=== PATIENT | male | born 1955 | race Caucasian/White ===

== ENCOUNTER 2016-02-22 09:51 | Inpatient (IN) | payer OTHER ==
[~2016-02-22] VITALS: Ht 175.3 cm; Wt 102.1 kg
[~2016-02-22 09:51] MED LIST: ATIVAN0.5 MG PO; CLONAZEPAM0.5 M2 PO; CYMBALTA30 M1 PO; GEODON40 MG PO; LAMICTAL200 M1 PO; LAMICTAL25 M1 PO; LEVOTHYROXINE0.15 M1 PO; LITHIUM CARBON150 M1 PO; LITHIUM CARBON150 MG PO; LITHIUM CARBON300 M3 PO; LITHIUM CARBON300 M4 PO; LITHIUM CARBON300 M6 PO; LITHIUM CARBON600 MG PO; MELATONIN3 M4 PO; MELATONIN5 M5 PO; METAMUCIL1 PAC PO; METFORMIN ER500 MG PO; NORTRIPTYLINE H25 M2 PO; NORTRIPTYLINE H50 M1 PO; OLANZAPINE5 MG PO; PRINIVIL5 M1 PO; PROPRANOLOL HCL10 M1 PO; RISPERIDONE4 MG PO; ROBINUL FORTE2 M1 PO; SEROQUEL100 M1 PO; TEGRETOL200 MG PO; VISTARIL50 M1 PO; VITAB121000 PO
--- NOTE | 2016-02-22 09:57 | ED GENERAL ADULT ---
History of Present Illness General Chief Complaint: Dyspnea (COPD, CHF, Other) Stated Complaint: COUGH, CONGESTION, WHEEZING Source: patient Exam Limitations: no limitations Vital Signs & Intake/Output Vital Signs & Intake/Output Vital Signs Date Time Temp Pulse Resp B/P Pulse O2 O2 Flow FiO2 Ox Delivery Rate 02/22 1047 97.7 84 18 127/76 93 Room Air 02/22 0746 97.0 62 18 104/68 94 Room Air 02/21 2223 98.0 57 16 114/69 90 Room Air 02/21 1807 98.5 62 16 108/55 96 Room Air 02/21 1354 98.2 61 16 101/59 92 Room Air ED Intake and Output 02/22 0000 02/21 1200 Intake Total 250 Output Total Balance 250 Intake, Oral 250 Patient 225 lb Weight Allergies Coded Allergies: Penicillins (RASH 11/11/15) Reconcile Medications Clonazepam 0.5 MG TABLET 1 TAB PO PRN ANXIETY (Reported) Duloxetine Hydrochloride (Cymbalta) 30 MG CAPSULE.DR 1 CAP PO DAILY MENTAL HEALTH (Reported) Escitalopram Oxalate 10 MG TABLET 1 TAB PO DAILY MENTAL HEALTH (Reported) Lamotrigine (Lamictal) 200 MG TABLET 1 TAB PO QPM MENTAL HEALTH (Reported) Levothyroxine Sodium 0.15 MG TAB 1 TAB PO DAILY AC THYROID (Reported) Lisinopril (Prinivil) 5 MG TABLET 0.5 TAB PO QAM HIGH BLOOD PRESSURE ( Reported) [place] Carbonate 300 MG CAPSULE 2 TAB PO QPM MENTAL HEALTH (Reported) [place] Carbonate 300 MG CAPSULE 1 CAP PO QAM MENTAL HEALTH (Reported) Metformin Hydrochloride (Metformin ER) [address] 1 TAB PO DAILY DIABETES ( Reported) Nortriptyline HCl 25 MG CAPSULE 5 TAB PO QPM PAIN CONTROL (Reported) Propranolol HCl 10 MG TABLET 1 TAB PO BID TREMORS (Reported) Quetiapine Fumarate (Seroquel) 100 MG TABLET 1 TAB PO QPM MENTAL HEALTH ( Reported) Risperidone 2 MG TABLET 1 TAB PO QPM MENTAL HEALTH (Reported) Risperidone 0.5 MG TABLET 1 TAB PO BID MENTAL HEALTH (Reported) Ziprasidone HCl (Geodon) 40 MG CAPSULE 1 TAB PO BID MENTAL HEALTH (Reported) Triage Nurses Notes Reviewed? yes Onset: Abrupt Duration: day(s): Timing: recent history HPI: 02/22/16 1 PM 60-year-old male presents to the emergency department complaining of depression and suicidal ideation. According to the patient he was up all night unable to sleep. He does admit to a cough and nasal congestion. No other medical complaints. He says that he's been depressed for some time and is having thoughts about hurting himself. The onset of the symptoms were abrupt, the duration of the symptoms has been days, the severity is significant; as his symptoms required to come to the emergency department for care (SAMANTHA GALLO DO) Past History Travel History Traveled to [place] past 21 day No Medical History Any Pertinent Medical History? 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 No (SAMANTHA GALLO DO) Review of Systems Review of Systems Constitutional: Denies: fever. EENTM: Denies: visual changes. Respiratory: Reports: cough. Denies: short of breath. Cardiovascular: Denies: chest pain. GI: Denies: abdominal pain. Genitourinary: Reports: no symptoms. Musculoskeletal: Reports: no symptoms. Skin: Denies: rash. Neurological/Psychological: Reports: depressed. Hematologic/Endocrine: Denies: bleeding. (SAMANTHA GALLO DO) Physical Exam Physical Exam General Appearance: alert, awake, anxious, mild distress Head: atraumatic, normal appearance Eyes: Bilateral: normal appearance, PERRL, EOMI. Ears, Nose, Throat: normal pharynx, normal ENT inspection Neck: normal inspection, supple, full range of motion Respiratory: normal breath sounds, chest non-tender, no respiratory distress Cardiovascular: regular rate/rhythm Peripheral Pulses: 4+ radial (R), 4+ radial (L) Gastrointestinal: non-tender Back: normal range of motion Extremities: normal range of motion Neurologic/Psych: no motor/sensory deficits, awake, alert, oriented x 3 Skin: intact, normal color, warm/dry Core Measures ACS in differential dx? No CVA/TIA Diagnosis: No Severe Sepsis Present: No Septic Shock Present: No (SAMANTHA GALLO DO) Progress Differential Diagnoses I considered the following diagnoses in my evaluation of the patient: [ DEPRESSION,SI, ] Plan of Care: Orders Procedure Date/time Status Regular Diet 02/22 B Active Continuous Observation Monitor 02/22 1500 Active Admit to inpatient psych 02/22 1320 Active Continuous Observation Monitor 02/22 1100 Active Continuous Observation Monitor 02/22 0700 Active ETHANOL 02/21 2014 Complete COMPREHENSIVE METABOLIC PANEL 02/21 2014 Complete CBC WITHOUT DIFFERENTIAL 02/21 2014 Complete Current Medications Sig/Josesito Start time Last Medication Dose Stop Time Status Admin Clonazepam 0.5 MG ONCE ONE 02/22 1330 AC (KlonoPIN) 02/22 1331 Laboratory Tests 02/22/162049: Anion Gap 8, Estimated GFR > 60, BUN/Creatinine Ratio 11.0, Glucose 116 H, Calcium 9.9, Total Bilirubin 0.5, AST 21, ALT 21, Alkaline Phosphatase 59, Total Protein 6.8, Albumin 4.0, Globulin 2.8, Albumin/Globulin Ratio 1.4, CBC w Diff NO MAN DIFF REQ, RBC 4.69 L, MCV 92.3, MCH 31.5 H, RDW 13.0, MPV 7.8, Gran % 68.5, Lymphocytes % 17.0 L, Monocytes % 9.4 H, Eosinophils % 4.7, Basophils % 0.4, Absolute Granulocytes 5.2, Absolute Lymphocytes 1.3, Absolute Monocytes 0.7 H, Absolute Eosinophils 0.4, Absolute Basophils 0, PUBS MCHC 34.1, Serum Alcohol < 10.0 Initial ED EKG: none (SAMANTHA GALLO DO) Hand-Off Endorsed To: DEIRDRE EASLEY MD Endorsed Time: 0700 Pending: consult (FRANK RIVAS,JOCELYNE Barker) Comments: To be admitted to [facility] (DEIRDRE EASLEY MD) Departure Departure Disposition: STILL A PATIENT Condition: Stable Clinical Impression Primary Impression: Depression Referrals: KARIE PACHECO MD (PCP/Family) Referred to [facility] as new patient No Departure Forms: Customer Survey General Discharge Information Comments 02/22/16 4:50 PM The patient was evaluated by crisis. He is for a bed search. 02/22/16 7 PM The patient is pending a bed search. He was signed out to Dr. Stevens at 7 PM (SAMANTHA GALLO DO) Psych Admission Note Psychiatric Admission: I have seen and evaluated JOJO MCCARTHY JR. I have also reviewed all the pertinent lab results and diagnostic results. JOJO MCCARTHY JR will be admitted to our inpatient Psychiatric unit for treatment and care. (KAUSHAL RIVAS,DEIRDRE) Critical Care Note Critical Care Note Critical Care Time: 30-74 min (SAMANTHA GALLO DO)
--- NOTE | 2016-02-22 09:59 | NUR ---
BIBA FROM HOME WITH +SI THOUGHTS, PT VOLUNTARY TO ED. PT CALM AND COOPERATIVE, WANDED AND CHANGED TO HOSP SCRUBS. DENIES SI OR HI AT PRESENT.
--- NOTE | 2016-02-22 10:11 | NUR ---
PT had (1) belongings bag placed in closet and (1) valuables bag given to Pod II RN.
--- NOTE | 2016-02-22 10:21 | NUR ---
URINE TRIO SENT TO LAB. PT REMAINS CALM AND COOPERATIVE.
[2016-02-22] MEDS ORDERED: RISPERIDONE2 M1 PO (10:37)
[2016-02-22] MEDS ORDERED: RISPERIDONE0.5 M1 PO (10:37)
[2016-02-22] MEDS ORDERED: ESCITALOPRAM OX10 MG PO (10:37)
--- NOTE | 2016-02-22 11:24 | NUR ---
PT BREATHALYZER = .024 PT JUST RECEIVED LUNCH TRAY. PT IS CALMAND COOPERATIVE AT THIS TIME.
--- NOTE | 2016-02-22 11:55 | ED PSYCH CRISIS CONSULTATION ---
See Addendum Crisis Consult Basic Assessment Date of Consult: 02/22/16 Responsible Person/Accompanied By: self Insurance Authorization: Insurance #1: Insurance name: NATY AUGUSTE Phone number: Policy number: [id number] Group number: Authorization number: ED Provider: Patient's ED Provider: SAMANTHA GALLO DO Primary Care Physician: Patient's PCP: KARIE PACHECO MD PCP's Current Psychiatrist: Zainab Malik APRN Chief Complaint: Psychiatric Related Complaint Patient's Quote: Last night i couldn't sleep and felt suicidal. Present Illness: Pt is a 60 yo male biba to [facility] this morning due to suicidal thoughts. Pt has a diagnosis of major depressive d/o and has had several inpatient admissions on [facility] over the past two yrs. Pt's tx hx began following his 's suicide in 2013. He reports ongoing suicidal thoughts since his 's . he reports thoughts of overdosing on pills but is too scared to do it and also the medications are locked and he doesn't have access. he reports prior inpatient hospitalizations have not helped. Pt is also currently in tx at [facility]. His last appt was 02/16. He reports medication regime has been fairly stable other than recent Lamictal increase from 175 to 200 that he reports has not been beneficial. In addition to thoughts about his he also expressed concern they he may become homeless soon due to his son's problem's at work. He lives with his son renny and his girlfriend Neida. He reports housing uncertainty if his son either quits or gets fired from job. Overall pt presents as depressed , SI with no active plan, OX3, hopeless. He will be a voluntary admission if inpatient tx is recommended. Patient's Address: [address] [place] [address] Other Phone Number: Who Do You Live With? Son Family/Informants Interviewed: collateral provided by son Erwin Dee . He reports father has been more depressed possibly due to the holidays. He reports father is also perseverating on other son Renny's issues with his employer and how it may ultimately cause a housing issue. Allergies - Coded Allergies: Penicillins (RASH 11/11/15) Current Medications - Scheduled Medications Duloxetine Hydrochloride (Cymbalta) 30 MG CAPSULE.DR 1 CAP PO DAILY MENTAL HEALTH #15 (Reported) Entered as Reported by SARAHI MINOR on 12/01/15 1700 Escitalopram Oxalate 10 MG TABLET 1 TAB PO DAILY MENTAL HEALTH #30 (Reported) Entered as Reported by REMIGIO SMITH on 02/22/16 1037 Lamotrigine (Lamictal) 200 MG TABLET 1 TAB PO QPM MENTAL HEALTH (Reported) Entered as Reported by SARAHI MINOR on 12/01/15 170 Levothyroxine Sodium 0.15 MG TAB 1 TAB PO DAILY AC THYROID #30 (Reported) Entered as Reported by REMIGIO SMITH on 10/02/14 0925 Lisinopril (Prinivil) 5 MG TABLET 0.5 TAB PO QAM HIGH BLOOD PRESSURE ( Reported) Entered as Reported by REMIGIO SMITH on 10/02/14 0926 [place] Carbonate 300 MG CAPSULE 2 TAB PO QPM MENTAL HEALTH (Reported) Entered as Reported by [place] on 11/11/15 213 [place] Carbonate 300 MG CAPSULE 1 CAP PO QAM MENTAL HEALTH (Reported) Entered as Reported by SARAHI MINOR on 12/01/15 170 Metformin Hydrochloride (Metformin ER) [address] 1 TAB PO DAILY DIABETES #90 (Reported) Entered as Reported by REMIGIO SMITH on 10/02/14 0925 Nortriptyline HCl 25 MG CAPSULE 5 TAB PO QPM PAIN CONTROL (Reported) Entered as Reported by [place] on 11/11/152126 Propranolol HCl 10 MG TABLET 1 TAB PO BID TREMORS (Reported) Entered as Reported by [place] on 11/11/152129 Quetiapine Fumarate (Seroquel) 100 MG TABLET 1 TAB PO QPM MENTAL HEALTH #15 ( Reported) Entered as Reported by SARAHI MINOR on 12/01/15 170 Risperidone 2 MG TABLET 1 TAB PO QPM MENTAL HEALTH #30 (Reported) Entered as Reported by REMIGIO SMITH on 02/22/16 1037 Risperidone 0.5 MG TABLET 1 TAB PO BID MENTAL HEALTH #90 (Reported) Entered as Reported by REMIGIO SMITH on 02/22/16 1037 Ziprasidone HCl (Geodon) 40 MG CAPSULE 1 TAB PO BID MENTAL HEALTH (Reported) Entered as Reported by [place] on 11/11/152131 Scheduled PRN Medications Clonazepam 0.5 MG TABLET 1 TAB PO PRN ANXIETY (Reported) Entered as Reported by [place] on 11/11/152130 Laboratory Results: Laboratory Tests 02/22/16 1005: Urine Opiates Screen < 100.00, Methadone Screen 40, Barbiturate Screen < 60, Ur Phencyclidine Scrn < 6.00, Amphetamines Screen < 100, U Benzodiazepines Scrn < 85, Urine Cocaine Screen < 50, Urine Cannabis Screen < 5.00 Past History Past Medical History Neurological: NONE EENT: NONE Cardiovascular: hypertension Respiratory: SLEEP APNEA USES CPAP AT HOME Gastrointestinal: constipation, diverticulitis Hepatic: NONE Renal: NONE Musculoskeletal: NONE Psychiatric: anxiety, depression Endocrine: hypothyroidism, "BORDERLINE DIABETES" Blood Disorders: NONE Cancer(s): 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 Pt is connected to treatment at this time. Pt has a supportive family. Physical Limitations (Interventions): None identified. Psychiatric Treatment History Psych Treatment Psychiatric Treatment Yes Inpatient Treatment Yes (multiple [facility] admissions. ) Outpatient Treatment Yes ([facility]) Reason for Treatment Major depression Dates of Treatment Last [facility] admission 12/05. Current [facility] Response to Treatment continued chronic depression with SI Diagnosis by History: MDD, recurrent, severe; Bipolar D/O Substance Use/Abuse History Drug Use/Abuse Substances Used/Abused Yes Substance Used/Abused Alcohol Last Used New Yrs How much used/taken 2 glasses champagne How often not often past 6 mos. since starting lithium Substance Abuse Treatment Substance Abuse Treatment Past Substance Abuse [place] No Inpatient Treatment No Outpatient Treatment No Comments: a couple drinks on [place] and New Yrs. 1st drinks in 6 mos. Current Mental Status Mental Status Orientation: Person, Place, Situation Affect: Depressed, Sad Speech: WNL Neuro-vegetative: Anhedonia, Energy Decreased, Helpless, Loss of Interest, Sleep Disturbance Appearance Appearance- Dress/Hygiene: hospital scrubs. somewhat disheveled. appeared tired. sat up/feet on floor during consult. good eye contact. Behaviors Thought Process: WNL Thought Content: WNL Memory: WNL Insight: Fair SI/HI Risk Assessment Past Suicidal Ideation/Attempts Yes Current Suicidal Ideation/Att Yes Past Homicidal Ideation/Att: No Current Homicidal Ideation/Attempts No Degree of Intent: Thoughts/No Intent Danger To: Self Risk Factors: high anxiety/distress, history of suicide atmpts, SA/MH hospitalized, male Lethality Ratin PTSD Checklist PTSD Done? patient declined ED Management Sitter: Yes Restraints: No DSM5/PS Stressors/Medical Prob Diagnosis' (DSM 5, Stressors, Medical): MDD F33.2 concerns about housing/potential homelessness suicide 2013 Current GAF: 25 Comments: pt increased depression over the holidays. also has fear of homelessness if his son loses or quits his job. Departure Disposition Psych Medical Clearance Date: 02/22/16 Medically Cleared at: 1300 Time Started: 1305 Time Ended: 1345 Psychiatrist Consulted: Yaakov Mcdonald MD Date Disposition Established: 02/22/16 Time Disposition Established: 1345 Plan for Disposition - Modality: Bed Search Rationale for Disposition: Pt is a risk to self. requies inpatient psychiatric tx. Referrals KARIE PACHECO MD (PCP/Family)
--- NOTE | 2016-02-22 13:53 | NUR ---
PT CALM AND COOPERATIVE. PT REPORTS FEELING ANXIOUS AND NOT BEING ABLE TO SLEEP. VSS. SITTER AT DOOR.
--- NOTE | 2016-02-22 14:42 | NUR ---
Pt assessed by crisis and is in need of inpatient psychiatric admission. crisis will commence bed search.
--- NOTE | 2016-02-22 15:15 | NUR ---
PT SLEEPING ON BED AT THIS TIME. SITTER AT DOOR FOR SAFETY.
--- NOTE | 2016-02-22 16:52 | NUR ---
PT AMBULATORY TO RESTROOM. PT CALM AND COOPERATIVE. RESTING IN ROOM WITH SITTER AT DOOR.
--- NOTE | 2016-02-22 18:08 | NUR ---
PT RESTING IN DARK ROOM, ATTEMPTING TO SLEEP. SITTER AT DOOR FOR SAFETY. PT CALM AND COOPERATIVE
--- NOTE | 2016-02-22 19:43 | NUR ---
PT SLEEPING IN ROOM. RESPIRATIONS EQUAL AND UNLABORED. SITTER AT DOOR.
--- NOTE | 2016-02-22 20:55 | NUR ---
BLOOD DRAWN AND SENT TO LAB
[2016-02-22 20:59] LABS: ABSOLUTE BASOPHIL COUNT 0 /CUMM (0.0-0.2); ABSOLUTE EOSINOPHIL COUNT 0.4 /CUMM (0.0-0.7); ABSOLUTE GRANULOCYTE CT 5.2 /CUMM (1.4-6.5); ABSOLUTE LYMPH COUNT 1.3 /CUMM (1.2-3.4); ABSOLUTE MONOCYTE COUNT 0.7 /CUMM (0.10-0.60); BASOPHIL % 0.4 % (0.0-2.0); EOSINOPHIL % 4.7 % (0-5); GRANULOCYTE % 68.5 % (42.2-75.2); HEMATOCRIT 43.3 % (42-52); MEAN CORPUSCULAR HGB 31.5 PG (27.0-31.0); MEAN CORPUSCULAR HGB CONC 34.1 G/DL (33.0-37.0); MEAN CORPUSCULAR VOLUME 92.3 FL (80.0-94.0); MEAN PLATELET VOLUME 7.8 FL (7.4-10.4); PLATELET COUNT 185 /CUMM (130-400); RED BLOOD CELL CT 4.69 /CUMM (4.70-6.10); WHITE BLOOD CELL COUNT 7.6 /CUMM (4.8-10.8)
--- NOTE | 2016-02-22 21:05 | NUR ---
PT LYING ON BED WATCHING TV. PT CALM AND COOPERATIVE. SITTER AT DOOR.
--- NOTE | 2016-02-22 22:23 | NUR ---
PT LYING ON BED WATCHING TV. PT IS CALM AND COOPERATIVE AT THIS TIME. PT INQUIRING ABOUT HIS Q MEDS. SITTER AT DOOR.
--- NOTE | 2016-02-22 23:38 | NUR ---
ASSUMED CARE OF PT. PT SLEEPING WITH RR, SITTER IN PLACE AT DOOR WILL CONTINUE TO MONITOR.
--- NOTE | 2016-02-23 01:58 | NUR ---
PT SLEEPING WITH RR, CHEST FALL AND RISE. SITTER IN PLACE AT DOOR. WILL CONTINUE TO MONITOR.
--- NOTE | 2016-02-23 02:05 | NUR ---
PT SLEEPING WITH RR. SITTER IN PLACE AT DOOR.
--- NOTE | 2016-02-23 04:00 | NUR ---
PT SLEEPING WITH RR ON STOMACH, CHEST/BACK RISE AND FALL NOTED. SITTER IN PLACE AT DOOR, WILL CONTINUE TO MONITOR.
--- NOTE | 2016-02-23 07:30 | NUR ---
ASSUMED CARE, AWAKE. SITTER IN ATTENDANCE.
--- NOTE | 2016-02-23 08:39 | NUR ---
PT. PROVIDED CEREAL WITH MILK. NO UTENSILS GIVEN A SAFETY PRECAUTION. PT. INSTRUCTED TO EAT CEREAL OUT OF BOWL. PT. AGREEABLE, SITTING UP EATING CEREAL
--- NOTE | 2016-02-23 11:00 | NUR ---
ANXIOUS, PACING IN ROOM, STATES. "I WANT TO ". REQUESTING MEDICATION TO "CALM DOWN."
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
--- NOTE | 2016-02-23 13:37 | NUR ---
MEDICATED WITH KLONOPIN .5 MG. PT AWARE AND AGREEABLE TO ADMISSION TO [facility].
--- NOTE | 2016-02-23 15:03 | NUR ---
AWAITING ADMISSION TO [facility].
--- NOTE | 2016-02-23 15:17 | NUR ---
PHARMACY CALLED FOR MEDICATIONS.
--- NOTE | 2016-02-23 15:58 | NUR ---
REPORT TO MERE SCHWARZ.
[2016-02-23 16:21] LABS: LITHIUM 0.6 mmol/L (0.6-1.2)
[2016-02-23 16:34] VITALS: BP 146/85
--- NOTE | 2016-02-23 17:34 | NUR ---
ADMITTED FROM ED ON VOLUNTARY FOR DEPRESSION WITH PASSIVE THOUGHTS OF SI, NO PLAN. PATIENT IS WELL KNOWN FROM PREVIOUS ADMISSIONS. MED Hx OF SLEEP APNEA (USES CPAP), HTN, HYPOTHYROID, DENIES DIABETES. mOOD IS STABLE, FLAT AFFECT, SELF REPRTS DEPRESSION AND PASSIVE SI (WISHES HE WAS ), WITH NO CURRENT PLAN OR INTENT. uNABLE TO CONFIRM HOME MEDS WITH PATIENT WHO STATED THAT HIS MEDS ARE DISPENSED BY A VISITING NURSE NAMED Davis BUT HE DOES NOT KNOW HER AGENCY.
[2016-02-23 20:01] VITALS: BP 116/76
--- NOTE | 2016-02-23 21:51 | NUR ---
PT ADMITTED TO UNIT AT 1608h. PT FAMILIAR WITH UNIT AND SETTLED IN QUICKLY. PT IN COMMUNITY - VERY MINIMAL INTERACTION WITH OTHERS. PT JUST WATCHED TV ALL CARLOS. PT COMPLIANT AND COOPERATIVE. PT MOOD STABLE - FLAT AFFECT. NO COMPLAINTS OFFERED.
[2016-02-24 07:43] VITALS: BP 96/62
--- NOTE | 2016-02-24 11:36 | History & Physical ---
General Information and HPI MD Statement: I have seen and personally examined JOJO MCCARTHY JR and documented this H&P. The patient is a 60 year old M who presented with a patient stated chief complaint of suicidal thoughts Source of Information: patient Exam Limitations: no limitations History of Present Illness: 60-year-old male with past medical history significant for hypertension, diabetes, hypothyroidism,SADIA on CPAP, major depressive disorder who was admitted to Inpatient Psychiatry with complaint of suicidal thoughts. Patient has been feeling depressed about his home situation. Symptoms got worse after the of his which was in 2013. He has these suicidal thoughts which has been bothering him. He's feeling depressed. He also claims that he sometimes developed diarrhea but currently complains of constipation. He does complain of some lower abdominal pain. He denies any urinary complaints. He denies any chest pain, shortness of breath, fevers or headaches. He does take medications for hypertension, diabetes and hypothyroidism. Allergies/Medications Allergies: Coded Allergies: Penicillins (RASH 11/11/15) Home Med list Clonazepam 0.5 MG TABLET 1 TAB PO PRN ANXIETY (Reported) Escitalopram Oxalate 10 MG TABLET 1 TAB PO DAILY MENTAL HEALTH (Reported) Lamotrigine (Lamictal) 200 MG TABLET 1 TAB PO QPM MENTAL HEALTH (Reported) Levothyroxine Sodium 0.15 MG TAB 1 TAB PO DAILY AC THYROID (Reported) Lisinopril (Prinivil) 5 MG TABLET 0.5 TAB PO QAM HIGH BLOOD PRESSURE ( Reported) [place] Carbonate 300 MG CAPSULE 2 TAB PO QPM MENTAL HEALTH (Reported) [place] Carbonate 300 MG CAPSULE 1 CAP PO QAM MENTAL HEALTH (Reported) Metformin Hydrochloride (Metformin ER) [address] 1 TAB PO DAILY DIABETES ( Reported) Propranolol HCl 10 MG TABLET 1 TAB PO BID TREMORS (Reported) Risperidone 2 MG TABLET 1 TAB PO QPM MENTAL HEALTH (Reported) Risperidone 0.5 MG TABLET 1 TAB PO BID MENTAL HEALTH (Reported) Past History Travel History Traveled to [place] past 21 day No Medical History Neurological: NONE EENT: NONE Cardiovascular: hypertension Respiratory: SLEEP APNEA USES CPAP AT HOME Gastrointestinal: constipation, diverticulitis Hepatic: NONE Renal: NONE Musculoskeletal: NONE Psychiatric: anxiety, depression Endocrine: hypothyroidism, "BORDERLINE DIABETES" Blood Disorders: NONE Cancer(s): 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 Home Who Do You Live With? self Services at Home: None Primary Language: Bahraini Smoking Status: Never Smoked ETOH Use: occasional use Illicit Drug Use: denies illicit drug use Living Will? unknown Functional Ability ADLs Independent: dressing, eating, toileting, bathing. Ambulation: independent IADLs Independent: shopping, housework, finances, food prep, telephone, transportation , medication admin. Employment History Employment Unemployed Review of Systems Review of Systems Constitutional: Reports: see HPI. Denies: chills, diaphoresis, fever. EENTM: Reports: see HPI. Cardiovascular: Reports: see HPI. Respiratory: Reports: see HPI. GI: Reports: see HPI. Genitourinary: Reports: see HPI. Musculoskeletal: Reports: see HPI. Exam & Diagnostic Data Last 24 Hrs of Vital Signs/I&O Vital Signs Date Time Temp Pulse Resp B/P Pulse O2 O2 Flow FiO2 Ox Delivery Rate 02/23 0759 64 9662 02/23 0759 64 96/62 02/23 0743 97.2 64 96/62 02/22 2157 97.7 61 116/76 02/22 2001 97.7 61 116/76 02/22 1747 98.1 76 18 146/85 02/22 1747 98.1 76 18 146/85 02/22 1634 98.1 76 146/85 02/22 1402 98.0 72 18 113/71 96 Room Air Intake & Output 02/23 1600 02/23 0800 02/23 0000 Intake Total Output Total Balance Patient 225 lb Weight Physical Exam General Appearance Alert, Oriented X3, Cooperative Skin No Rashes, No Breakdown HEENT Atraumatic, PERRLA Neck Supple Cardiovascular Regular Rate, Normal S1, Normal S2 Lungs Clear to Auscultation Abdomen Normal Bowel Sounds, Soft, No Tenderness Neurological Cranial Nerves II through XII: Intact Extremities No Cyanosis, No Edema Last 24 Hrs of Labs/Leon: Laboratory Tests 02/22/16 2050: Anion Gap 8, Estimated GFR > 60, BUN/Creatinine Ratio 11.0, Glucose 116 H, Calcium 9.9, Total Bilirubin 0.5, AST 21, ALT 21, Alkaline Phosphatase 59, Total Protein 6.8, Albumin 4.0, Globulin 2.8, Albumin/Globulin Ratio 1.4, TSH 0.155 L , CBC w Diff NO MAN DIFF REQ, RBC 4.69 L, MCV 92.3, MCH 31.5 H, RDW 13.0, MPV 7.8, Gran % 68.5, Lymphocytes % 17.0 L, Monocytes % 9.4 H, Eosinophils % 4.7, Basophils % 0.4, Absolute Granulocytes 5.2, Absolute Lymphocytes 1.3, Absolute Monocytes 0.7 H, Absolute Eosinophils 0.4, Absolute Basophils 0, PUBS MCHC 34.1 , [place] 0.6, Serum Alcohol < 10.0 Diagnostic Data EKG Results NSR, NO ACUTE ST T CHANGES. Assessment/Plan Assessment: 60-year-old male with history significant for diabetes, hypertension, hypothyroidism, SADIA uses CPAP, major depressive disorder who was admitted with major depression as well as suicidal ideation. I believe the psych management per psychiatry. Patient has been started back on his home medications which include lisinopril for hypertension, Synthroid for hypothyroidism and metformin for diabetes. Please continue to check Accu-Cheks. TSH was low therefore I will add a T4 as well as DVT. Patient does complain of constipation at this time but usually has diarrhea. He is asking to add Metamucil. I would order some stool studies and add Metamucil. Please continue to use CPAP at night per his home regimen. As Ranked By This Provider Problem List: 1. Depression 2. Suicidal ideations 3. Pre-diabetes 4. Hypertension 5. SADIA (obstructive sleep apnea) 6. Major depression Miscellaneous Miscellaneous Documentation Attending Case Discussed With: Pastora Chen MD Primary Care Physician: KARIE PACHECO MD Patient sees these Specialists Psychiatrist Level of Patient Care: [facility]
--- NOTE | 2016-02-24 12:06 | History & Physical ---
General Information and HPI MD Statement: I have seen and personally examined JOJO MCCARTHY JR and documented this H&P. The patient is a 60 year old M who presented with a patient stated chief complaint of suicidal ideation. Source of Information: patient Exam Limitations: no limitations Allergies/Medications Allergies: Coded Allergies: Penicillins (RASH 11/11/15) Home Med list Clonazepam 0.5 MG TABLET 1 TAB PO PRN ANXIETY (Reported) Escitalopram Oxalate 10 MG TABLET 1 TAB PO DAILY MENTAL HEALTH (Reported) Lamotrigine (Lamictal) 200 MG TABLET 1 TAB PO QPM MENTAL HEALTH (Reported) Levothyroxine Sodium 0.15 MG TAB 1 TAB PO DAILY AC THYROID (Reported) Lisinopril (Prinivil) 5 MG TABLET 0.5 TAB PO QAM HIGH BLOOD PRESSURE ( Reported) [place] Carbonate 300 MG CAPSULE 2 TAB PO QPM MENTAL HEALTH (Reported) [place] Carbonate 300 MG CAPSULE 1 CAP PO QAM MENTAL HEALTH (Reported) Metformin Hydrochloride (Metformin ER) [address] 1 TAB PO DAILY DIABETES ( Reported) Propranolol HCl 10 MG TABLET 1 TAB PO BID TREMORS (Reported) Risperidone 2 MG TABLET 1 TAB PO QPM MENTAL HEALTH (Reported) Risperidone 0.5 MG TABLET 1 TAB PO BID MENTAL HEALTH (Reported) Past History Travel History Traveled to [place] past 21 day No Medical History Neurological: NONE EENT: NONE Cardiovascular: hypertension Respiratory: SLEEP APNEA USES CPAP AT HOME Gastrointestinal: constipation, diverticulitis Hepatic: NONE Renal: NONE Musculoskeletal: NONE Psychiatric: anxiety, depression Endocrine: hypothyroidism, "BORDERLINE DIABETES" Blood Disorders: NONE Cancer(s): 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 Home Who Do You Live With? self Services at Home: None Primary Language: Chilean Smoking Status: Never Smoked ETOH Use: occasional use Illicit Drug Use: denies illicit drug use Living Will? unknown Functional Ability ADLs Independent: dressing, eating, toileting, bathing. Ambulation: independent IADLs Independent: shopping, housework, finances, food prep, telephone, transportation , medication admin. Employment History Employment Unemployed Exam & Diagnostic Data Diagnostic Data EKG Results NSR, NO ACUTE ST T CHANGES. Miscellaneous Miscellaneous Documentation Patient sees these Specialists Psychiatrist Level of Patient Care: [facility]
[2016-02-24 12:11] VITALS: BP 88/51
--- NOTE | 2016-02-24 12:17 | NUR ---
PT IS CALM AND COOPERATIVE. HE IS ATTENDING GROUPS AND IS COMPLIANT WITH HIS MEDS. PT EXPRESSES SOME FRUSTATION AT BEING BACK IN THE HOSPITAL AND HOPES IT WILL BE A SHORT STAY.PT DENIES ANY SUICIDAL THOUGHTS AT THIS TIME
--- NOTE | 2016-02-24 13:53 | SOCIAL WORKER PROG NOTE PSYCH ---
Social Work Progress Note Progress Note Discussed Luc in team meeting with Dr. Mcdonald and Julio De Dios APRN and staff. I am covering today for Paz Molina LCSW. Luc he stated he is depressed, and he feels the medicine isn't working. He had an increase in Lamictal about 2-3 weeks ago, in [facility] with Zainab Malik APRN. Luc is in a men's group 2x per month with Lexie Mai LCSW. Pt. stated he sees an individual therapist, Jean-Paul Green LCSW in [place] - weekly since 2015. He also has a visiting nurse, Svetlana ([facility]) who was concerned about Luc' report of SI with plan to take pills and wanted him to go to the ED. Luc stated he had a bad dream about "being homeless", which triggered the SI. Luc stated he has been worried about his future, and he and his son plan to move back into his home by the end of February 2016, in order for his son to save money on rent. Luc stated "I am an incessant worrier, there are no drugs ( pills) for that." Luc stated Depression 0/10: 5 and anxiety 0/10:6. Luc is in application process for disability. He stated he is an "incessant worrier, I don't think there are any drugs for that." He denied having SI/HI, no psychosis. He signed releases for [facility] nurse, Jean-Paul Green LCSW (therapist in [place]), and his son, Renny. Phoned Luc' son, who stated he noticed Luc feelingmore depressed the past 1- 2 weeks, but Luc didn't express any SI to him, only his visiting nurse the day he came to the ED. He sais he feels his Father has been more isolated the past couple weeks. Renny is willing to come in for a fmily meeting, prefers Mon. or Weds. after 1pm due to his work schedule. Stated Paz Molina LCSW or covering clinician will call him to schedule a meeting.
[2016-02-24 16:10] VITALS: BP 119/75
--- NOTE | 2016-02-24 16:11 | CPS MD/APRN INITIAL ASSE PSYCH ---
Psychiatric Admission Talent Consultant's Note Reviewed: Yes Patient Seen and Examined: Yes Identifying Information: Patient is a 60-year-old , , male. Chief Complaint: Suicidal thoughts. Reaction to Hospitalization: Calm and cooperative. History of Present Illness Onset of Illness: Refractory depression over the past many years. Circumstances Leading to Admission: Exacerbation of refractory depression and suicidal ideation. Problem(s) Justifying Need for Admission: Suicidal ideation, and depression. Past Psychiatric History Past Diagnosis(es)- if any: Major depression, recurrent, severe with suicidal ideation. Unspecified bipolar disorder, depressed. Generalized anxiety disorder. Past Precipitating Factors- if any: Patient's of suicide with the patient's tricyclic antidepressant medications in December 2013. - Include inpatient and outpatient treatment Treatment History: This is the patient's ninth [facility] admission since June 2014. Past Psychiatric Hospitalizations: 1994- depression, attempted suicide by OD on prozac 2002- depression/anxiety 2015 - Four [facility] admissions 2016 fall- [facility] worsening depression and suicidal thoughts 2016 - Two [facility] admissions. Treatment Hx: IOP several times since 's passing Outpatient - OPS for medication management Hx ECT - client refuses to return to ECT Prior Medication Trials: klonopin 0.5mg QHS Nortriptyline 125mg QHS ([id number]) - "think was helpful" wellbutrin - "increased anxiety" prozac - "increased anxiety" zoloft - "increased anxiety" effexor - increased anxiety" cymbalta - "increased anxiety" lithium Tegretol abilify - doesn't remember zyprexa geodon ?clozaril ketamine ECT melatonin 10mg QHS History of Suicide Attempts or Gestures In 2014 the patient put a plastic bag over his head to "practice" suicide. Substance Abuse History: Denies alcohol or substance abuse. Infrequently drinks a couple of glasses of wine. Reports distant use of marijuana while in college, none since. Reported trying cocaine many years ago, and not since. Allergies: Coded Allergies: Penicillins (RASH 11/11/15) Home Med List: As per outpatient note on 02/05/16: 1. Lamictal 200mg daily 2. Klonopin 0.5mg BID PRN anxiety 3. Lexapro 10mg daily 4. [place] carbonate 300mg capsule, 1 QAM 2 QPM 5. Risperdal 2mg QHS 6. 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 History of MRSA: No History of VRE: No History of CDIFF: No Isolation History: Standard Influenza Vaccine: 10/27/15 Surgical History Surgical History: TONSILLECTOMY Psychiatric Family/Social Hx Family History Psychiatric Illness: Sister - anxiety, depression on prozac Youngest son - depression on zoloft Substance Use: 2 maternal uncles - alcoholic 1 paternal uncle - alcoholic father "possible" alcoholic Suicides: by OD on patient's Nortriptyline 2013 Other Family History: Father had colon cancer, mother had kidney disease Social History Living Situation: Living in [place] with second son, his girlfriend and her 10 year old son. Has a dog and two cats. Significant Relationships (family/friends): Close to brother and sister who both live in [place], [place]. His major support is from his sons, one of whom he lives with. 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 "Lost main job" approximately 3 years ago, attempted to go back approximately 2 years ago. Legal: Currently going through bankruptcy, son is helping, Renny (middle son) has POA. Healthly Behaviors Screening Tobacco Screening Tobacco Use from ED Docu: Never used - If tobacco counseling indicated - the following topics are required. - #1 Recognizing dangerous situations. - #2 Coping Skills. - #3 Basic information about quitting. Status of Tobacco Cessation Counseling: N/A B/C NO TOB USE Cessation Med Status: No Tobacco Use last 30d Alcohol Screening - ETOH screen POS if BAL >=80 or Audit-C>= M4/F3 Audit-C Score from Diag Assess: 2 Blood Alcohol Level: Laboratory Tests 02/21 2049 Toxicology Serum Alcohol (<10 MG/DL) < 10.0 Alcohol Use Screening Results: Neg per Audit C &/or BAL - If ETOH counseling indicated - the following topics are required. - #1 Express concern about the patient's - drinking at unhealthy levels, include informing - of national norms for moderate drinking: - men <= 14 drinks/week, max 4 drinks/occasion - women <= 7 drinks/week, max 3 drinks/occasion - #2 Providing feedback, including linking alcohol to - negative physical effects (liver injury, hypertension) - negative emotional effects (relationship problems and - depression) - negative occupational consequences (reduced work - performance) - #3 Advising the patient to abstain from alcohol or - to drink below national norms for moderate drinking - (as listed above). Status of ETOH Use Counseling: N/A B/C NO ETOH Use Metabolic Screening - Screen if on a Neuroleptic Medication - Metabolic screening should include: - Blood Pressure, BMI, Glucose or Hgb A1c, & a - Lipid profile from within the past 365 days. Metabolic Screening () Not Applicable, patient not on a neuroleptic. OR ([x]) Patient on a neuroleptic(s) . Enter below results for Glucose or Hemoglobin A1C, and lipid panel if obtained during the last 365 days. BMI: 33.200 Blood Pressure: 88/51 Laboratory Results (If applicable): Lab Cholesterol 146 MG/DL 10/14/15 1128 Cholesterol/HDL Ratio 3 % 10/14/15 1128 Glucose 116 mg/dL H 02/22/162049 HDL Cholesterol 47 mg/dL 10/14/15 1128 Hemoglobin A1c 5.0 % 10/29/15 0624 LDL Cholesterol, Calc 68 mg/dL 10/14/15 1128 Triglycerides 155 mg/dL H 10/14/15 1128 Exam and Plan Mental Status Examination Ambulation Status: Patient ambulates independently with steady gait Appearance: Disheveled, dressed appropriately Attitude towards examiner: Calm cooperative Psychomotor activity: Within normal limits Behavior: Cooperative yet slow Quality of speech: Speech is well articulated, goal-directed, average in rate, volume and tone. Affect: Sad, congruent Mood: Sad Suicidal Ideation: Yes. Denies plan. "I wish I were . I'd like to see my again." Patient is able to contract for safety while on the unit. Homicidal Ideation: Denies Hallucinations: Denies Paranoid/Delusional Material: Denies Difficulties with thought organization: Thoughts are clear. Insight: Poor Judgment: Poor Orientation: Alert and oriented to person, place, time and situation. Cognition: Within normal limits Memory Function: Within normal limits, however not tested Estimate of intellectual functioning: Above average Assets/Strengths Patient Identified Assets/Strengths: "I don't know." Impression/Plan Impression and Plan: This 60-year-old man, well known to this department, with refractory depression and a long history of suicidal ideation. Currently being treated in [place] outpatient, is now having an exacerbation of depression and suicidal ideation. Plan: Continue medications. Continue to evaluate and explore further treatment options. - Include all active medical diagnosis that require tx DSM 5 Diagnosis(es): Major depressive disorder, with suicidal ideation. Rule out mood disorder. Rule out anxiety disorder. - Initial Tx Plan for Active Psych & Medical Conditions Treatment Plan: PLAN: The patient will be monitored on the unit for safety, suicidal ideation, depression and mood stability. Additional information is needed from collaterals, including his son. Anticipate once clinically stable, that the patient will be discharged to home and family and be referred to [facility]. - Factors that would help patient function - in a less restrictive setting. Factors: No longer suicidal, alleviation of depression.
[2016-02-24 19:52] VITALS: BP 102/72
--- NOTE | 2016-02-24 22:44 | NUR ---
PT IS VISIBLE ON UNIT, WATCHING TV IN LOUNGE. MINIMAL INTERACTION WITH PEERS OR STAFF. COOPERATIVE AND COMPLAINT. ATTENDED WRAP UP MEETING. NO COMPLAINTS OR SI REPORTED TO THIS MHW. PT HAS A STABLE MOOD AND FLAT AFFECT.
--- NOTE | 2016-02-25 05:24 | NUR ---
PATIENT SLEPT ALL NIGHT WITH CPAP IN PLACE; RESPIRATIONS EVEN REGULAR; NO ISSUES.
[2016-02-25 07:51] VITALS: BP 94/68
[2016-02-25 12:18] VITALS: BP 98/64
--- NOTE | 2016-02-25 13:25 | NUR ---
PT IS COMPLIANT AND COOPERATIVE. MOOD IS STABLE WITH A FLAT AFFECT. PT DENIES SI AT THIS TIME, NO COMPLAINTS OFFERED. PT IS PRESENT IN THE COMMUNITY, HAS SOME INTERACTION WITH PEERS AND STAFF. PT IS ATTENDING GROUPS. VITALS ARE STABLE, APPETITE IS GOOD. BS IS WNL.
--- NOTE | 2016-02-25 15:37 | CP SOUTH PROGRESS NOTE PSYCH ---
Psych (Inpt) Progress Note Progress Note Progress Note: I I discussed this patient's progress to date, current mental status, treatment process in the context of the treatment plan, and discharge planning with staff/ team in the daily morning inpatient team meeting. I also met with the patient myself in individual session. A total of 25 minutes was spent with the patient with more than 50% spent in counseling and/or coordination of care. SUBJECTIVE: "I'm not going to kill myself, but I wish I wasn't here." OBJECTIVE: Current Medications Sig/Josesito Start time Last Medication Dose Route Stop Time Status Admin Acetaminophen 650 MG Q6P PRN 02/22 1500 AC PO Al Hydroxide/Mg 30 ML Q4-6 PRN PRN 02/22 1500 AC Hydroxide PO Clonazepam 0.5 MG Q8P PRN 02/22 1500 AC 02/23 PO 03/01 1459 2255 Escitalopram Oxalate 15 MG 0800 02/25 0800 UNVr PO Escitalopram Oxalate 10 MG DAILY 02/22 1452 DC 02/24 PO 0802 Lamotrigine 200 MG DAILY 02/22 1451 AC 02/24 PO 0802 Levothyroxine Sodium 0.15 MG DAILY AC 02/22 1456 AC 02/24 PO 0706 Lisinopril 2.5 MG QAM 02/22 1457 AC 02/24 PO 0802 [place] Carbonate 300 MG 0800 02/23 0800 AC 02/24 PO 0801 [place] Carbonate 600 MG AT BEDTIME 02/22 2200 AC 02/23 PO 2253 Magnesium Hydroxide 30 ML AT BEDTIME PRN 02/22 2200 AC PO Metformin HCl 500 MG 0800,1700 02/22 1700 AC 02/24 PO 0801 Propranolol HCl 10 MG BID 02/22 1459 AC 02/24 PO 0801 Psyllium Hydrophilic 1 PAC DAILY 02/23 1136 AC 02/24 Mucilloid PO 0802 Risperidone 2 MG AT BEDTIME 02/22 2200 AC 02/23 PO 2254 Risperidone 0.5 MG TID@0800,1300,1700 02/22 1700 AC 02/24 PO 1401 Vital Signs Date Time Temp Pulse Resp B/P Pulse O2 O2 Flow FiO2 Ox Delivery Rate 02/24 1218 53 98/64 02/24 0802 97.6 53 18 94/68 02/24 0801 97.6 53 18 94/68 02/24 0751 97.6 53 94/68 02/23 2253 96.7 62 18 102/72 02/23 1952 96.7 62 102/72 02/23 1610 59 119/75 ASSESSMENT: Patient found in bed this afternoon at approximately 3:00 PM. He was not sleeping and was easily aroused. Patient ambulated with steady gait to my office, where we met together along with his outpatient provider Zainab Malik APRN, and social work administrator Paz VillarrealMANAGER OF MAINTENANCE. Patient reports some low level underlying chronic depression and anxiety, without suicidal ideation. States that at home he is a "almost a shut-in." We discussed with him possible options to engage in volunteer work or other social activity. We discussed the possibility that patient might start trans-magnetic stimulation (TMS) therapy on an outpatient basis. Patient agreed to this, and we are now looking into finding appropriate providers in the area. Depression:2/10; Anxiety:2/10 (with 10 the worst.) Denies suicidal ideation, homicidal ideation, auditory hallucinations, visual hallucinations, paranoid ideation. Patient states and also believes that he will not kill himself. He is able to contract for safety while on the unit. Speech is well articulated, goal-directed, average in rate, volume and tone. Said quiet mood and affect. States that he slept well last night, better than last couple nights before. Reports no nightmares. The patient understands the risks/benefits/side effects of the medication and is agreeable to continue taking them. PLAN: Patient has agreed to an increase in dose of Lexapro to 15 mg daily for continuing depression and anxiety. Continue with current management as patient is improving. Continue to provide support and encouragement.
[2016-02-25 15:44] VITALS: BP 106/66
--- NOTE | 2016-02-25 15:47 | SOCIAL WORKER PROG NOTE PSYCH ---
Social Work Progress Note Progress Note Luc met with Julio De Dios APRN, Zainab Malik APRN and I. He is open to looking at a new treatment option of transcranial magnetic stimulation (TSM). We are hoping to find a strip roller that will accept his insurance. Luc talked about his son Renny looking to move back into Luc's old home in order to save money for 8 months in order to then buy a new home. Luc's home will be forclosed on in 8 months. His other son Erwin currently lives there and they would all be living together. He is a little worried about how that will work out. His two sons don't always get along. Today Luc is denying any thoughts of suicide and stating his depression is at about a 2 (10 being worst). Luc talked about his inhibitions to leave the house and describes himself as a "shut in" basically, only attending doctor's appts. and going to the store. We talked about involving himself in other activities. I asked about the volunteer work that he had been discussing? He said that he had been working on a place with his therapist in [place]. 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 I will reach out to his therapist tomorrow to discuss further. I told him that I would also be contacting Renny (son) to set up a meeting. Called Renny and left a message.
--- NOTE | 2016-02-25 15:47 | SOCIAL WORKER TX PLAN PSYCH ---
Treatment Plan - Please Document: - Evidence that there is ongoing collaboration between - the patient and the interdisciplinary team, - including the patient's active participation and - responsibility for engaging in the treatment regimen, - and that the treatment plan is individualized and - relevant to the patient's conditions. - Treatment plan should reflect documentation indicating - that all active therapeutic efforts are included. Strengths/Capabilities: Pt is able to articulate his wants and needs. Pt is connected to treatment at this time. Pt has a supportive family. Physical Limitations (Interventions): None identified. Patient Identified Trmt Goals: "I don't want to feel suicidal" Discharge Plan: To explore TMS therapy along with individual therapy Problem/Goals #1 Problem #1: suicidal ideation Goal (Short Term): To diminish thoughts of suicide Goal (Mcfp): Patient will identify things that make life worth living Interventions: Patient will be offered medication mangement with the SUPERVISORY HISTORIAN, groups offered on symptom management, coping skills, self-esteem, relaxation, accupunture, spirituality. Program Specialist will help patient explore activities and roles that help him feel worthy and improve self-esteem. Modalities: groups/ individuals DSM5/PS Stressors/Medical Prob Diagnosis' (DSM 5, Stressors, Medical): MDD F33.2 concerns about housing/potential homelessness suicide 2013 Current GAF: 25 Treatment Team - Responsibilities of members of the treatment team include: - Medication Management- MD or SUPERVISORY HISTORIAN - Medication Administration and Monitoring- Nurse - Group Therapy- Occupational Therapist - 1:1 Therapy,Disch Planning,family involvement-Program Specialist
[2016-02-25 19:39] VITALS: BP 102/66
--- NOTE | 2016-02-25 21:44 | NUR ---
PT IS COMPLIANT AND COOPERATIVE. PT IS VISIBLE ON UNIT WITH MINIMAL INTERACTION WITH PEERS AND STAFF. PT HAD A VISIT THAT WENT WELL. PT HAS A STABLE MOOD WITH A FLAT AFFECT. PT ATTENDED WRAP UP AND COMING TO TERMS THAT HE MIGHT HAVE TO SPEND SOME MORE TIME ON THIS UNIT. NO COMPLAINTS OFFERED AT THIS TIME.
--- NOTE | 2016-02-26 04:53 | NUR ---
SLEPT [id number].
[2016-02-26 07:54] VITALS: BP 116/74
--- NOTE | 2016-02-26 10:37 | SOCIAL WORKER PROG NOTE PSYCH ---
Social Work Progress Note Progress Note Called Dr. Robert's office and left a message, as well as [facility] in [place]. I was told by the [place] office that I should receive a call back today. Called Luc's son Renny again and was able to schedule an appt. for a family meeting on Monday at 2:30am. Met with Luc and informed him of the above information. We talked about the upcoming move to his old family home. This is supposed to happen by the end of the month. He doesn't seem concerned about moving back there, but stated he is anxious about what will happen after that. Meaning he is not sure where his son will buy a house. I asked if he thought it would be out of state? He said no, he'll most likely stay in the [place] area. He is also concerned about the relationship between his two son's. It's not that they argue, but he feels that they complain to him about eachother and his son Renny feels Luc is too easy on Erwin. Luc has more empathy for Erwin's social problems, so he doesn't come down on him as much, which Renny doesn't agree with. I asked if going to the house was going to be triggering for him, in terms of his ? He said he didn't think so, but he won't really know until he's there. I told him to be mindful of that and to reach out to people if he starts having more negative thoughts. I received a call back from the doctor in [place], who left a voicemail indicating that TMS is not covered by [employer]. Talked to Jean-Paul Green [facility] who sees Luc for individual therapy. I gave him a brief clinical update. Luis will continue to see Luc on Tuesdays at 10am. He has an appt. this Monday. Luis will continue to work with Luc on his anxiety about sending an emails out about volunteering. I informed Luc of the information about insurance not covering TMS. He was disappointed, but said he thought that may happen. He was open to returning to [facility] for awhile and seeing his therapist. We also discussed his anxiety about reaching out to [facility], which is volunteer consulting for businesses. He said he drafted the email, but just couldn't hit the send button. He talked about a lack of confidence since losing his job. Tried to get him to talk himself through it, like what the worst thing that could happen? What's there to lose? He said he will work with Luis on progressing steps.
[2016-02-26 12:11] VITALS: BP 102/67
--- NOTE | 2016-02-26 13:44 | NUR ---
PT IS CALM AND COOPERATIVE. HE DENIES ANY SUICIDAL THOUGHTS OR THOUGHTS OF SELF HARM.HE IS ATTENDING GROUPS AND VERBALIZING HIS CONCERNS APPROPRIATELY TO STAFF AND PEERS. HE IS COMPLIANT WITH HIS MED REGIME
--- NOTE | 2016-02-26 14:02 | CP SOUTH PROGRESS NOTE PSYCH ---
Psych (Inpt) Progress Note Progress Note Progress Note: I discussed this patient's progress to date, current mental status, treatment process in the context of the treatment plan, and discharge planning with staff/ team in the daily morning inpatient team meeting. I also met with the patient myself in individual session. A total of 15 minutes was spent with the patient with more than 50% spent in counseling and/or coordination of care. SUBJECTIVE: "The risperidone seems to be better for anxiety." OBJECTIVE: Current Medications Sig/Josesito Start time Last Medication Dose Route Stop Time Status Admin Acetaminophen 650 MG Q6P PRN 02/22 1500 AC PO Al Hydroxide/Mg 30 ML Q4-6 PRN PRN 02/22 1500 AC Hydroxide PO Clonazepam 0.5 MG Q8P PRN 02/22 1500 AC 02/24 PO 03/01 1459 2119 Escitalopram Oxalate 15 MG 0800 02/25 0800 AC 02/25 PO 0850 Escitalopram Oxalate 10 MG DAILY 02/22 1452 DC 02/24 PO 0802 Lamotrigine 200 MG DAILY 02/22 1451 AC 02/25 PO 0850 Levothyroxine Sodium 0.15 MG DAILY AC 02/22 1456 AC 02/25 PO 0851 Lisinopril 2.5 MG QAM 02/22 1457 AC 02/25 PO 0851 [place] Carbonate 300 MG 0800 02/23 0800 AC 02/25 PO 0852 [place] Carbonate 600 MG AT BEDTIME 02/22 2200 AC 02/24 PO 2118 Magnesium Hydroxide 30 ML AT BEDTIME PRN 02/22 2200 AC PO Metformin HCl 500 MG 0800,1700 02/22 1700 AC 02/25 PO 0851 Propranolol HCl 10 MG BID 02/22 1459 AC 02/25 PO 0851 Psyllium Hydrophilic 1 PAC DAILY 02/23 1136 AC 02/25 Mucilloid PO 0851 Risperidone 2 MG AT BEDTIME 02/22 2200 AC 02/24 PO 2118 Risperidone 0.5 MG TID@0800,1300,1700 02/22 1700 AC 02/25 PO 0851 Vital Signs Date Time Temp Pulse Resp B/P Pulse O2 O2 Flow FiO2 Ox Delivery Rate 02/25 1211 51 102/67 02/25 0851 96.3 60 18 116/74 02/25 0851 96.3 60 18 116/74 02/25 0754 96.3 60 116/74 02/24 2118 97.2 60 18 102/66 02/24 1939 97.2 60 102/66 02/24 1544 58 106/ ASSESSMENT: Patient reports is OK, denies suicidal ideation, tolerating current medications including the increased dose of Lexapro well, without complaint. He reports feeling hopeless, and does not feel that his condition will improve. Offers no complaint, is interested in being discharged from the hospital early next week. Depression:3/10; Anxiety:0/10 (with 10 the worst.) Denies suicidal ideation, homicidal ideation, auditory hallucinations, visual hallucinations, paranoid ideation. Patient states and also believes that he will not kill himself. Although he denies plan or intent to kill himself, he does state that he wishes he were no longer alive. Reports that he did not sleep so well last night, waking up frequently during the night. Denies nightmares. States appetite is fine. Speech is well articulated, goal-directed, average in rate, volume and tone. Sad, quiet mood, congruent affect. The patient understands the risks/benefits/side effects of the medication and is agreeable to continue taking them. PLAN: Today we continued to investigat TMS therapy, however it appears that [employer] insurance will not pay for it. Continue with current management as patient is improving. Continue to provide support and encouragement.
[2016-02-26 16:12] VITALS: BP 98/64
[2016-02-26 19:44] VITALS: BP 101/66
--- NOTE | 2016-02-26 21:27 | NUR ---
PT IS GENERALLY VERY QUIET, STAYING TO SELF, THOUGH IN [place]. PT IS RELATIVALLY WITHDRAWN, NOT INTERACTING MUCH WITH PEERS. PT WILL ONLY RESPOND IF DIRECTLY ENAGED. PT MOOD IS STABLE, AFFECT IS FLAT/CONSTRICTED, COMMUNICATION IS GENERALLY SPARSE, NUTRITION IS NORMAL. PT DENIES SI AT THIS TIME.
--- NOTE | 2016-02-27 04:49 | NUR ---
SLEPT WELL C-PAP IN PLACE.
[2016-02-27 07:57] VITALS: BP 106/69
[2016-02-27 12:13] VITALS: BP 97/63
--- NOTE | 2016-02-27 12:19 | NUR ---
Dr. Ott notified re: lithium level of 0.8 today, no further orders at this time.
--- NOTE | 2016-02-27 13:54 | NUR ---
PT IS COMPLIANT AND COOPERATIVE. PT MOOD IS STABLE WITH A FLAT AFFECT. PT IS OUT IN COMMUNITY INTERACTING WELL WITH STAFF AND PEERS. PT HAS BEEN IN LOUNGE WATCHING T.V. WITH PEERS. PT IS ACTIVE IN GROUPS. PT DENIES SI. NO COMPLIANTS OFFERED
--- NOTE | 2016-02-27 14:25 | CP SOUTH PROGRESS NOTE PSYCH ---
Psych (Inpt) Progress Note Progress Note Include the following elements, when applicable: Involvement in the active treatment of the patient with behavioral observations of the patient and the patient's response to the treatment. Review of the ongoing treatment process in the context of the treatment plan. Indication of how multi-disciplinary staff members are carrying out the treatment plan. Plans for future interventions and recommendations for revision of the treatment plan. Liaison with other physicians/providers. Progress Note: Pt notes that "good" mood today. He did not sleep well last night with +DFA but denied GUANACO or DSS. He has tried melatonin in the past but did not find it to be helpful. He notes that mood is improved overall. Denies SE from lithium. Denies SI or HI. Current Medications Sig/Josesito Start time Last Medication Dose Route Stop Time Status Admin Acetaminophen 650 MG Q6P PRN 02/22 1500 AC PO Al Hydroxide/Mg 30 ML Q4-6 PRN PRN 02/22 1500 AC Hydroxide PO Clonazepam 0.5 MG Q8P PRN 02/22 1500 AC 02/24 PO 03/01 1459 2119 Escitalopram Oxalate 15 MG 0800 02/25 0800 AC 02/26 PO 0840 Lamotrigine 200 MG DAILY 02/22 1451 AC 02/26 PO 0840 Levothyroxine Sodium 0.15 MG DAILY AC 02/22 1456 AC 02/26 PO 1000 Lisinopril 2.5 MG QAM 02/22 1457 AC 02/26 PO 0840 [place] Carbonate 300 MG 0800 02/23 0800 AC 02/26 PO 0840 [place] Carbonate 600 MG AT BEDTIME 02/22 2200 AC 02/25 PO 2230 Magnesium Hydroxide 30 ML AT BEDTIME PRN 02/22 2200 AC PO Metformin HCl 500 MG 0800,1700 02/22 1700 AC 02/26 PO 0840 Propranolol HCl 10 MG BID 02/22 1459 AC 02/26 PO 0840 Psyllium Hydrophilic 1 PAC DAILY 02/23 1136 AC 02/26 Mucilloid PO 0841 Risperidone 2 MG AT BEDTIME 02/22 2200 AC 02/25 PO 2230 Risperidone 0.5 MG TID@0800,1300,1700 02/22 1700 AC 02/26 PO 1300 Trazodone HCl 50 MG AT BEDTIME NEED.. 02/26 1430 UNVr PO Laboratory Tests 02/26 02/23 0615 1509 Chemistry Free T4 (0.78 - 2.44 ng/dL) 1.38 Total T3 (0.97 - 1.69 ng/mL) 1.03 Toxicology [place] (0.6 - 1.2 mmol/L) 0.8 Vital Signs Result Date Time B/P 97/63 02/26 1213 Pulse 58 02/26 1213 Temp 97.7 02/26 0757 Resp 18 02/25 0851 Pulse Ox 96 02/22 1402 O2 Delivery Room Air 02/22 1402 MSE Appears as stated age. Cooperative behavior, good, appropriate eye contact. Nl speech rate and prosody. No psychomotor retardation or agitation. Mood good Affect flat, depressed, constricted, appropriate, non-liable. Linear and goal directed thought process. Denies SI or HI. Does not appear to be responding to internal stimuli. Denies AVHs, paranoia, or delusions. I/J: limited A/P: Pt with hx of MDD now with slight improvement in mood though notes some poor sleep. - Trial of trazodone 50mg PRN - Continue current meds, will hold at this lithium dose given li level of 0.8 - Dispo per primary team
[2016-02-27 15:37] VITALS: BP 108/69
[2016-02-27 19:47] VITALS: BP 108/65
--- NOTE | 2016-02-27 22:26 | NUR ---
PATIENT IS ALERT AND ORIENTED X3, PLEASANT AND COOPERATIVE; HE SPENT MOST OF THE EVENING WATCHING TV, QUIET, SUBDUED, STILL QUIET; AT WRAP UP MEETING HE AGREED TO TRY TALKING TO PEOPLE MORE TOMORROW; HE DID REPORT MUCH LESS ANXIETY TODAY; HE DENIES SUICIDAL IDEATION AT THIS TIME.
[2016-02-28 07:51] VITALS: BP 87/61
[2016-02-28 09:09] VITALS: BP 102/68
[2016-02-28 12:10] VITALS: BP 109/72
--- NOTE | 2016-02-28 14:17 | CP SOUTH PROGRESS NOTE PSYCH ---
Psych (Inpt) Progress Note Progress Note Include the following elements, when applicable: Involvement in the active treatment of the patient with behavioral observations of the patient and the patient's response to the treatment. Review of the ongoing treatment process in the context of the treatment plan. Indication of how multi-disciplinary staff members are carrying out the treatment plan. Plans for future interventions and recommendations for revision of the treatment plan. Liaison with other physicians/providers. Progress Note: Pt notes that he is "about the same." He had some difficulty with falling asleep last night and look trazodone around 12am with good effect. He reports feeling increased depressed mood as thinking about discharge which is scheudeled for tomorrow. 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 He denies SI or HI. He plans on attending IOP with individual therapy in [place] and MM at [facility] thereafter. Current Medications Sig/Josesito Start time Last Medication Dose Route Stop Time Status Admin Acetaminophen 650 MG Q6P PRN 02/22 1500 AC PO Al Hydroxide/Mg 30 ML Q4-6 PRN PRN 02/22 1500 AC Hydroxide PO Clonazepam 0.5 MG Q8P PRN 02/22 1500 AC 02/24 PO 03/01 1459 2119 Escitalopram Oxalate 15 MG 02/25 0800 AC 02/27 PO 0825 Lamotrigine 200 MG DAILY 02/22 1451 AC 02/27 PO 0824 Levothyroxine Sodium 0.15 MG DAILY AC 02/22 1456 AC 02/27 PO 0639 Lisinopril 2.5 MG QAM 02/22 1457 AC 02/26 PO 0840 [place] Carbonate 300 MG 0802/23 0800 AC 02/27 PO 0824 [place] Carbonate 600 MG AT BEDTIME 02/22 2200 AC 02/26 PO 2150 Magnesium Hydroxide 30 ML AT BEDTIME PRN 02/22 2200 AC PO Metformin HCl 500 MG 0800,1700 02/22 1700 AC 02/27 PO 0825 Propranolol HCl 10 MG BID 02/22 1459 AC 02/26 PO 2152 Psyllium Hydrophilic 1 PAC DAILY 02/23 1136 AC 02/27 Mucilloid PO 0824 Risperidone 2 MG AT BEDTIME 02/22 2200 AC 02/26 PO 2152 Risperidone 0.5 MG TID@0800,1300,1700 02/22 1700 AC 02/27 PO 1316 Trazodone HCl 50 MG 2230 02/27 2230 AC PO Trazodone HCl 50 MG AT BEDTIME NEED.. 02/26 1430 DC 02/26 PO 2303 02/27/16 0615: [place] 0.8 Vital Signs Result Date Time B/P 109/72 02/27 1210 Pulse 66 02/27 1210 Temp 97.7 02/27 0751 Resp 20 02/26 2152 Pulse Ox 96 02/22 1402 O2 Delivery Room Air 02/22 1402 MSE Appears as stated age. Cooperative behavior, good, appropriate eye contact. Nl speech rate and prosody. No psychomotor retardation or agitation. Mood about the same Affect flat, depressed, constricted, appropriate, non-liable. Linear and goal directed thought process. Denies SI or HI. Does not appear to be responding to internal stimuli. Denies AVHs, paranoia, or delusions. I/J: limited A/P: Pt with hx of MDD now with slight improvement in mood though notes some poor sleep though slightly improved with the addition of trazodone. - Trial of trazodone 50mg now as standing at 1030pm - Continue current meds, will hold at this lithium dose given li level of 0.8 - Dispo per primary team
--- NOTE | 2016-02-28 14:29 | NUR ---
Pt is present on the unit, no issues or complaints reported or observed, noted to keep to self and not initiate/engaged with peers and staff unless approached, is pleasant and appropriate but flat affect and stable mood, sits in the lounge and watches TV for most of day thus far, med compliant, + appetite.
[2016-02-28 15:59] VITALS: BP 104/68
[2016-02-28 19:41] VITALS: BP 116/70
--- NOTE | 2016-02-28 21:57 | NUR ---
PT. DID ATTEND WRAP UP VITALS STABLE BS HAVE BEEN STABLE THIS ADMISSION PT. COOPERATIVE WITH CARE WATCHING TV DOESN"T SOCIALIZE MUCH WITH OTHERS .
[2016-02-28 22:14] VITALS: BP 138/75
[2016-02-29 08:09] VITALS: BP 99/68
[2016-02-29 12:04] VITALS: BP 109/73
--- NOTE | 2016-02-29 14:55 | CP SOUTH PROGRESS NOTE PSYCH ---
Psych (Inpt) Progress Note Progress Note Progress Note: I discussed this patient's progress to date, current mental status, treatment process in the context of the treatment plan, and discharge planning with staff/ team in the daily morning inpatient team meeting. I also met with the patient myself in individual session. A total of 30 minutes was spent with the patient with more than 50% spent in counseling and/or coordination of care. SUBJECTIVE: "I still have some suicidal thoughts, but I'm not going to hurt myself." OBJECTIVE: Current Medications Sig/Josesito Start time Last Medication Dose Route Stop Time Status Admin Acetaminophen 650 MG Q6P PRN 02/22 1500 AC PO Al Hydroxide/Mg 30 ML Q4-6 PRN PRN 02/22 1500 AC Hydroxide PO Clonazepam 0.5 MG Q8P PRN 02/22 1500 AC 02/24 PO 03/01 1459 2119 Escitalopram Oxalate 15 MG 0800 02/25 0800 AC 02/28 PO 0852 Lamotrigine 200 MG DAILY 02/22 1451 AC 02/28 PO 0852 Levothyroxine Sodium 0.15 MG DAILY AC 02/22 1456 AC 02/28 PO 0754 Lisinopril 2.5 MG QAM 02/22 1457 AC 02/28 PO 0852 [place] Carbonate 300 MG 0800 02/23 0800 AC 02/28 PO 0852 [place] Carbonate 600 MG AT BEDTIME 02/22 2200 AC 02/27 PO 2216 Magnesium Hydroxide 30 ML AT BEDTIME PRN 02/22 2200 AC PO Metformin HCl 500 MG 0800,1700 02/22 1700 AC 02/28 PO 0851 Propranolol HCl 10 MG BID 02/22 1459 AC 02/28 PO 0851 Psyllium Hydrophilic 1 PAC DAILY 02/23 1136 AC 02/28 Mucilloid PO 0852 Risperidone 2 MG AT BEDTIME 02/22 2200 AC 02/27 PO 2216 Risperidone 0.5 MG TID@0800,1300,1700 02/22 1700 AC 02/28 PO 1320 Trazodone HCl 50 MG 22302/27 2230 AC 02/27 PO 2248 Vital Signs Date Time Temp Pulse Resp B/P Pulse O2 O2 Flow FiO2 Ox Delivery Rate 02/28 1204 53 109/73 02/28 851 96.9 56 20 9968 02/28 0851 96.9 56 20 99/68 01/09 0809 96.9 56 99/68 02/27 2216 64 138/75 02/27 2214 64 138/75 02/27 1941 97.2 62 116/70 02/27 1559 66 / ASSESSMENT: Patient reports that he feels safe and ready for discharge. Reports continuing chronic depression and anxiety, and chronic passive suicidal ideation with no plan or intent to harm himself. Prior to discharge, we held a family meeting along with his son, and social media executive Paz. His son will bring him home today. Depression:04/29; Anxiety:04/29 (with 10 the worst.) Denies suicidal ideation, homicidal ideation, auditory hallucinations, visual hallucinations, paranoid ideation. Patient states and also believes that he will not kill himself. He reports having a difficult time sleeping at night, took trazodone at bedtime last night, and requested that he be discharged with a prescription for trazodone. I also suggested that he discontinue drinking caffeinated soda in the evening. Speech is well articulated, goal-directed, average in rate, volume and tone. The patient understands the risks/benefits/side effects of the medication and is agreeable to continue taking them. PLAN: Discharge today. IOP intake tomorrow. He is also following up with his outpatient therapist Jean-Paul Green. Continue with current management as patient is improving. Continue to provide support and encouragement.
--- NOTE | 2016-02-29 14:58 | DISCHARGE SUMMARY REPORT-PSYCH ---
Visit Information Visit Dates/Diagnosis' Admission Date: 02/23/16 Discharge Date: 02/29/16 Reason for Admission: Exacerbation of refractory depression and suicidal ideation. This was the ninth inpatient psychiatric admission for the patient since September 2014. Psy Discharge Primary Diag: Major Depressive d/o, with suicidal ideation. Psy Discharge Secondary Diag: Sleep apnea, with CPAP; borderline DM; HTN Hospital Course Significant Lab Findings: Lab Free T4 1.38 ng/dL 02/24/16 1509 TSH 0.155 uIU/mL L 02/22/16 2050 Total T3 1.03 ng/mL 02/24/16 1509 Course Complications: None Consultations: Patient was seen for admission history and physical by Dr. Chen. Please refer to her history and physical for additional information. Allergies: Coded Allergies: Penicillins (RASH 11/11/15) Hospital Course/TX Response: The patient was monitored on the unit for safety, depression, mood stability, and suicidal ideation. He participated in multimodal treatments on the unit. Lexapro was increased to 20 mg daily for depression, and trazodone 50 mg was added at bedtime for sleep. In addition he was continued on his regular home medications of lithium for mood stability, clonazepam 0.5 mg at bedtime for anxiety, lamotrigine for mood stability and depression, risperidone for clear thoughts and mood stability. Patient reports that these medications were well tolerated, to good effect. Today, the day of discharge, he reports that he feels safe and ready for discharge. Reports continuing chronic depression and anxiety, and chronic passive suicidal ideation with no plan or intent to harm himself. Prior to discharge, we held a family meeting along with his son, and director social Paz. His son will bring him home today. Depression:3/10; Anxiety:3/10 (with 10 the worst.) Denies suicidal ideation, homicidal ideation, auditory hallucinations, visual hallucinations, paranoid ideation. Patient states and also believes that he will not kill himself. He reports having a difficult time sleeping at night, took trazodone at bedtime last night, and requested that he be discharged with a prescription for trazodone. I also suggested that he discontinue drinking caffeinated soda in the evening. Speech is well articulated, goal-directed, average in rate, volume and tone. The patient understands the risks/benefits/side effects of the medication and is agreeable to continue taking them. Patient reports tolerating his medications well, without complaint. States he feels safe and ready for discharge. Discharge HBIPS - Tobacco Use Treatment Offered Post DC Medications Offered: NA-No Tob Use >30 days Post DC Tobacco Treatment Plan: NA-No Tobacco use >30days - EtOH/Drug Use D/O Treatment Offered Post DC Medications Offered: NA-No EtOH/Drug Use D/O Post DC EtOH/SubAbuse TX Plan: NA-No EtOH/Drug Use D/O Metabolic Screening - Screen if on a Neuroleptic Medication - Metabolic screening should include: - Blood Pressure, BMI, Glucose or Hgb A1c, & a - Lipid profile from within the past 365 days. Metabolic Screening () Not Applicable, patient not on a neuroleptic. OR ([x]) Patient on a neuroleptic(s) . Enter below results for Glucose or Hemoglobin A1C, and lipid panel if obtained during the last 365 days. BMI: 33.200 Blood Pressure: 109/73 Laboratory Results (If applicable): Lab Cholesterol 146 MG/DL 10/14/15 1128 Cholesterol/HDL Ratio 3 % 10/14/15 1128 Glucose 116 mg/dL H 02/22/16 2050 HDL Cholesterol 47 mg/dL 10/14/15 1128 Hemoglobin A1c 5.0 % 10/29/15 0624 LDL Cholesterol, Calc 68 mg/dL 10/14/15 1128 Triglycerides 155 mg/dL H 10/14/15 1128 Discharge Instructions General Discharge Information Discharge Medications: Discharge Medications- (Dose, route, freq, indication): HOME MEDICATION LIST START taking these NEW Home Medications: Lisinopril Dose: ORAL, Every Morning for Qty: 14 Printed (Lisinopril) 2.5 MG 2.5 Milligram BLOOD PRESSURE Refills: 0 TABLET Last Taken:02/29/16 Time:850 Escitalopram Oxalate Dose: ORAL, DAILY for Qty: 14 Printed (Lexapro) 20 MG 20 Milligram DEPRESSION Refills: 0 TABLET dose increased to 20mg from 15mg Last Taken:02/29/16 15mg Time:850 Trazodone HCl Dose: ORAL, 2230 for SLEEP Qty: 14 Printed (Trazodone HCl) 50 50 Milligram Last Taken:02/28/16 Refills: 0 MG TABLET Time:2229 Metformin Dose: ORAL, 0800,1700 for Qty: 28 Printed Hydochloride 500 Milligram DIABETES Refills: 0 (Glucophage) 500 MG Last Taken:02/29/16 TABLET Time:0851 CONTINUE taking these Home Medications: Levothyroxine Sodium Dose: ORAL, DAILY BEFORE (Levothyroxine Sodium) 1 Tablet BREAKFAST for THYROID 0.15 MG TAB CONFIRMED BY JESUS REYES WITH [facility] Propranolol HCl Dose: ORAL, TWICE DAILY for (Propranolol HCl) 10 MG 1 Tablet TREMORS TABLET Last Taken:02/29/16 Time:0851 Clonazepam (Clonazepam) Dose: ORAL, as needed for 0.5 MG TABLET 1 Tablet ANXIETY Last Taken:02/25/16 Time:2111 Vina Carbonate Dose: ORAL, Every night for (Vina Carbonate) 300 2 Tablet MENTAL HEALTH MG CAPSULE Last Taken:02/28/16 Time:221 Lamotrigine (Lamictal) Dose: ORAL, Every night for 200 MG TABLET 1 Tablet MENTAL HEALTH Last Taken:02/29/16 Time:0851 Vina Carbonate Dose: ORAL, Every Morning for (Vina Carbonate) 300 1 Capsule MENTAL HEALTH MG CAPSULE Last Taken:02/29/16 Time:0851 Risperidone Dose: ORAL, Every night for (Risperidone) 2 MG 1 Tablet MENTAL HEALTH TABLET Last Taken:02/28/16 Time:2215 Risperidone Dose: ORAL, TWICE DAILY for (Risperidone) 0.5 MG 1 Tablet MENTAL HEALTH TABLET Last Taken:02/29/16 Time:1320 STOP taking these DISCONTINUED Home Medications: Metformin Hydrochloride Dose: ORAL, DAILY for DIABETES (Metformin ER) [address] 1 Tablet Reason Stopped: Changed Dose Lisinopril (Prinivil) 5 MG Dose: ORAL, Every Morning for HIGH TABLET 0.5 Tablet BLOOD PRESSURE Reason Stopped: Changed Dose Escitalopram Oxalate Dose: ORAL, DAILY for MENTAL HEALTH (Escitalopram Oxalate) 10 MG 1 Tablet Reason Stopped: Changed Dose TABLET Your Preferred Pharmacy [facility] [address] [place] [id number] Multiple Neuroleptics: (x) Not Applicable OR Document below three failed attempts at monotherapy, or a plan to taper to monotherapy, or augmentation of Clozapine. () Patient's Diet: Regular Patient's Activity: No restrictions DC Disposition: Patient is returning home, where he lives with his sons, and one of the son's girlfriend. Recommendations: Follow-up at [facility]. Follow up with your outpatient therapist. Take medications as prescribed and administered by your visiting nurse. Referred To: Post Discharge Referrals Provider Referral Referred To: [[facility]] Notes: Visiting nurse daily. Provider Referral Referred To: [[facility]] Notes: Gideon Kelly. Mallory, MS. Appt: 03/01/2016 at 12:45pm Provider Referral Referred To: [Jovanni Green LCSW] Notes: Therapy appointment on 03/01/2016 at 10:00am. Copies To: [facility] [facility] Intensive Outpt Psychiatry
--- NOTE | 2016-02-29 15:39 | NUR ---
Patient disharge to self care, follow-up with physicians per plan of care. Patient given education on suicide prevention and depression. Patient returning home to live with son.
[2016-02-29] MEDS ORDERED: LISINOPRIL2.5 M1 PO (15:45)
[2016-02-29] MEDS ORDERED: LEXAPRO20 M1 PO (15:48)
[2016-02-29] MEDS ORDERED: TRAZODONE HCL50 M1 PO (15:49)
[2016-02-29] MEDS ORDERED: GLUCOPHAGE500 M1 PO (15:53)
--- NOTE | 2016-02-29 17:25 | SOCIAL WORKER PROG NOTE PSYCH ---
Social Work Progress Note Progress Note Luc seemed to have a good weekend and feels ready to discharge today. Luc's son Renny came in for a family meeting. We talked about his follow up in [facility] and with Jean-Paul Green LCSW and reviewed his follow up appts. for tomorrow. 10a with the therapist and 12:45 intake with [facility]. Talked about the stress involved with moving back to the family home and what that means for Luc. Encouraged Renny to watch for triggers involving his Mother's happening there and discussed the conflict between Renny and brother Erwin and how that effects his Dad. Renny shared that he feels that his brother is a "freeloader" and he does nothing but eat their food, take the car and sleep. He doesn't feel that his Dad pushes Erwin. Luc talked about his difficulty in expressing those thoughts with Erwin. Encouraged Luc to focus less on what' s happening at home and more time focusing on getting himself out of the house. Called [facility] in [place] to resume med administration daily.
== END 2016-02-29 16:09 | DRG 754 ==
LOC: ERH 09:51 → CP SOUTH 02-23 13:20 → ERHI 02-23 13:20 → CP SOUTH 02-23 16:08
PROVIDERS: Emergency Medicine; ADMIT Psychiatry & Neurology Psychiatry
DX: F32.9 Major depressive disorder, single episode, unspecified (principal); R45.851 Suicidal ideations; G47.30 Sleep apnea, unspecified; E11.9 Type 2 diabetes mellitus without complications; I10 Essential (primary) hypertension
CPT/HCPCS: 36415; 80307; 87045; 93005; 93010; G0463; G0480

== ENCOUNTER 2016-04-04 15:19 | Inpatient (IN) | payer OTHER ==
[~2016-04-04] VITALS: Ht 175.3 cm; Wt 90.7 kg
[~2016-04-04 15:19] MED LIST changes: +ESCITALOPRAM OX10 MG PO; +GLUCOPHAGE500 M1 PO; +LEXAPRO20 M1 PO; +LISINOPRIL2.5 M1 PO; +RISPERIDONE0.5 M1 PO; +RISPERIDONE2 M1 PO; +TRAZODONE HCL50 M1 PO
--- NOTE | 2016-04-04 15:46 | NUR ---
PT PINEDA FROM [facility] FOR +SI, STATING HE HAS BEEN FEELING INCREASINGLY DEPRESSED OVER THE WEEKEND, REPORTING "I WANT TO PLACE A PLASTIC BAG OVER MY HEAD" ENDORSES ONE OTHER PREVIOUS SI ATTEMPT IN 1994 BY TAKING "A BOTTLE OF PILLS" DENIES ANY ACCESS TO WEAPONS AT HOME, REPORTS HE LIVES WITH HIS SON AND HIS GIRLFRIEND, REPORTS OCCASIONAL ETOH, LAST DRINK "AT SUPERBOWL" DENIES ANY OTHER DRUG USE. PT WANDED BY SECURITY ON ARRIVAL, 1 BELONGINGS BAG AND 1 VALUABLES BAG, PT INFORMED IT IS POSSIBLE THERE WILL BE A LONGER THAN NORMAL WAIT DUE TO HIGH VOLUME OF PT'S IN ED TODAY, PT EXPRESSES UNDERSTANDING.
[2016-04-04 16:07] LABS: ABSOLUTE BASOPHIL COUNT 0 /CUMM (0.0-0.2); ABSOLUTE EOSINOPHIL COUNT 0.4 /CUMM (0.0-0.7); ABSOLUTE GRANULOCYTE CT 5.3 /CUMM (1.4-6.5); ABSOLUTE MONOCYTE COUNT 0.7 /CUMM (0.10-0.60); BASOPHIL % 0.4 % (0.0-2.0); EOSINOPHIL % 5.6 % (0-5); GRANULOCYTE % 71.2 % (42.2-75.2); HEMATOCRIT 45.2 % (42-52); MEAN CORPUSCULAR HGB 31.3 PG (27.0-31.0); MEAN CORPUSCULAR HGB CONC 33.8 G/DL (33.0-37.0); MEAN CORPUSCULAR VOLUME 92.5 FL (80.0-94.0); PLATELET COUNT 188 /CUMM (130-400); RBC DISTRIBUTION WIDTH 13.1 % (11.5-14.5); RED BLOOD CELL CT 4.88 /CUMM (4.70-6.10); WHITE BLOOD CELL COUNT 7.4 /CUMM (4.8-10.8)
[2016-04-04 16:28] LABS: LITHIUM 0.9 mmol/L (0.6-1.2)
--- NOTE | 2016-04-04 16:33 | ED PSYCHIATRIC COMPLAINT ---
History of Present Illness General Chief Complaint: Psychiatric Related Complaint Stated Complaint: SI Source: patient, old records Exam Limitations: no limitations Vital Signs & Intake/Output Vital Signs & Intake/Output Vital Signs Date Time Temp Pulse Resp B/P Pulse O2 O2 Flow FiO2 Ox Delivery Rate 04/05 1703 97.0 64 18 119/68 99 Room Air 04/05 1544 98.2 68 16 134/76 95 Room Air 04/05 1040 97.4 63 16 128/57 95 Room Air 04/05 0656 96.9 56 16 112/66 96 Room Air 04/04 2221 97.0 56 16 117/64 96 Room Air ED Intake and Output 04/05 0000 04/04 1200 Intake Total 40 Output Total Balance 40 Intake, Oral 40 Patient 200 lb Weight Allergies Coded Allergies: Penicillins (RASH 11/11/15) Reconcile Medications Clonazepam 0.5 MG TABLET 1 TAB PO PRN ANXIETY (Reported) Escitalopram Oxalate (Lexapro) 20 MG TABLET 20 MG PO DAILY DEPRESSION Lamotrigine (Lamictal) 200 MG TABLET 1 TAB PO QPM MENTAL HEALTH (Reported) Levothyroxine Sodium 0.15 MG TAB 1 TAB PO DAILY AC THYROID (Reported) Lisinopril 2.5 MG TABLET 2.5 MG PO QAM BLOOD PRESSURE [place] Carbonate 300 MG CAPSULE 2 TAB PO QPM MENTAL HEALTH (Reported) [place] Carbonate 300 MG CAPSULE 1 CAP PO QAM MENTAL HEALTH (Reported) Metformin Hydochloride (Glucophage) 500 MG TABLET 500 MG PO 0800,1700 DIABETES Propranolol HCl 10 MG TABLET 1 TAB PO BID TREMORS (Reported) Risperidone 2 MG TABLET 1 TAB PO QPM MENTAL HEALTH (Reported) Risperidone 0.5 MG TABLET 1 TAB PO BID MENTAL HEALTH (Reported) Trazodone HCl 50 MG TABLET 50 MG PO 2230 SLEEP Triage Note: PT BIBA FROM [facility] FOR +SI, STATING HE HAS BEEN FEELING INCREASINGLY DEPRESSED OVER THE WEEKEND, REPORTING "I WANT TO PLACE A PLASTIC BAG OVER MY HEAD" ENDORSES ONE OTHER PREVIOUS SI ATTEMPT IN 1994 BY TAKING "A BOTTLE OF PILLS" DENIES ANY ACCESS TO WEAPONS AT HOME, REPORTS HE LIVES WITH HIS SON AND HIS GIRLFRIEND, REPORTS OCCASIONAL ETOH, LAST DRINK "AT SUPERBOWL" DENIES ANY OTHER DRUG USE. PT WANDED BY SECURITY ON ARRIVAL, 1 BELONGINGS BAG AND 1 VALUABLES BAG, PT INFORMED IT IS POSSIBLE THERE WILL BE A LONGER THAN NORMAL WAIT DUE TO HIGH VOLUME OF PT'S IN ED TODAY, PT EXPRESSES UNDERSTANDING. Triage Nurses Notes Reviewed? yes Onset: Abrupt HPI: 60-year-old male with a history of depression comes into the emergency room for suicidal ideation. Patient lives with his son and his son's girlfriend. History of previous suicide attempt many years ago. Denies any recent attempts. Patient has been feeling depressed. Some intermittent alcohol use but denies any drug use. Denies owning any weapons. Patient reports that his medications are locked up. Denies any other associated symptoms at this time. Support from his son at home. (DELORES GILES) Past History Travel History Traveled to [place] past 21 day No Medical History Any Pertinent Medical History? 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 No (DELORES GILES) Review of Systems Review of Systems Constitutional: Reports: no symptoms. EENTM: Reports: no symptoms. Respiratory: Reports: no symptoms. Cardiovascular: Reports: no symptoms. GI: Reports: no symptoms. Genitourinary: Reports: no symptoms. Musculoskeletal: Reports: no symptoms. Skin: Reports: no symptoms. Neurological/Psychological: Reports: see HPI. Hematologic/Endocrine: Reports: no symptoms. Immunologic/Allergic: Reports: no symptoms. All Other Systems: Reviewed and Negative (DELORES GILES) Physical Exam Physical Exam General Appearance: well developed/nourished, mild distress Head: atraumatic Eyes: Bilateral: normal appearance, EOMI. Ears, Nose, Throat: normal ENT inspection, hearing grossly normal Neck: normal inspection Respiratory: normal breath sounds, no respiratory distress Cardiovascular: regular rate/rhythm Extremities: normal range of motion Neurological/Psychiatric: awake, agitated, alert, depressed affect Behavoir/Eye Contact/Speech: cooperative Thoughts/Hallucinations: no apparent hallucination Skin: intact, normal color, warm/dry SAD PERSONS SAD PERSONS Response Value Male Sex? yes 1 Age <19 or >45 years? yes 1 Depression/Hopelessness? yes 2 Previous Attempts/Psych Care yes 1 Single//? yes 1 Social Support? has support 0 Total 6 SAD PERSONS Done? yes (DELORES GILES) Progress Differential Diagnosis: dementia, drug intoxication, drug overdose, drug withdrawal, electrolyte abnormality, encephalitis, hypoglycemia, hypothyroidism, IC hem/mass/tumor, meningitis, depression, anxiety, bipolar, schizophrenia, Plan of Care: Orders Procedure Date/time Status Regular Diet 04/05 D Active Regular Diet 04/05 B Complete Patient Data - inpatient psych 04/05 1307 Active Admit to inpatient psych 04/05 1307 Active Admit to inpatient psych 04/05 1014 Active Continuous Observation Monitor 04/05 0927 Active Vital Signs 04/05 UNK Active Activity/Ambulation 04/05 UNK Active Intake & Output 04/04 1547 Active Hand-Off Endorsed To: BRENDA BHAT MD Endorsed Time: 2043 Pending: consult (crisis) (DELORES GILES) Hand-Off Endorsed To: SAMANTHA GALLO DO Endorsed Time: 07 Pending: consult (BRENDA BHAT MD) Departure Departure Disposition: STILL A PATIENT Condition: Stable Clinical Impression Primary Impression: Depression Secondary Impressions: Suicidal ideation Referrals: KARIE PACHECO MD (PCP/Family) Departure Forms: Customer Survey General Discharge Information (DELORES GILES) PA/LADLE OPERATOR Co-Sign Statement Statement: ED Attending supervision documentation- [X] I saw and evaluated the patient. I have also reviewed all the pertinent lab results and diagnostic results. I agree with the findings and the plan of care as documented in the PA's/LADLE OPERATOR's documentation. [X] I have reviewed the ED Record and agree with the PA's/LADLE OPERATOR's documentation. [] Additions or exceptions (if any) to the PAs/LADLE OPERATOR's note and plan are summarized below: [] (BRENDA BHAT MD) Departure Comments 04/05/16 6:45 pm The patient was signed out to me by Dr. Bhat at 7 AM. He was admitted to Inpatient Psychiatry. Psych Admission Note Psychiatric Admission: I have seen and evaluated JOJO MCCARTHY JR. I have also reviewed all the pertinent lab results and diagnostic results. JOJO MCCARTHY JR will be admitted to our inpatient Psychiatric unit for treatment and care. (SAMANTHA GALLO DO) I have seen and evaluated JOJO MCCARTHY JR. I have also reviewed all the pertinent lab results and diagnostic results. JOJO MCCARTHY JR will be admitted to our inpatient Psychiatric unit for treatment and care. (SAMANTHA GALLO DO)
--- NOTE | 2016-04-04 18:14 | ED PSY CRISIS COLLATERAL NOTE ---
Collateral Note Collateral Note Family/Inform/Niels Contacts: Sw received a call from May, from [facility]. May states that she is sending the patient to the ED, secondary to + SI, with a plan to put a plastic bag over his head. She states that he has been going to treatment and has experienced some SI, however was perviously able to contract for safety. May states that the triggering factor was the patient moving from his sons home, back to the house, where his committed suicide, years ago. Per May, Antonella Ovalles APRN believes that the patient may need a medication change, which may need to occur inpatient.
--- NOTE | 2016-04-04 18:56 | NUR ---
CRISIS CONSULT IN PROGRESS. PT HAS BEEN IN BEHAVIORAL CONTROL AND COOPERATIVE. CALM, PLEASANT, DOWNCAST.
--- NOTE | 2016-04-04 19:56 | NUR ---
PT LYING ON BED WATCHIHNG TV. PT CALM AND COOPERATIVE. PT PROVIDED WITH WATER REQUESTED. PT AWARE HE WILL BE HERE OVERNIGHT.
--- NOTE | 2016-04-04 20:04 | ED PSYCH CRISIS CONSULTATION ---
Crisis Consult Basic Assessment Date of Consult: 04/04/16 Responsible Person/Accompanied By: Self Insurance Authorization: Insurance #1: Insurance name: NATY AUGUSTE Phone number: Policy number: [id number] Group number: Authorization number: ED Provider: Patient's ED Provider: DELORES GILES Primary Care Physician: Patient's PCP: KARIE PACHECO MD PCP's Current Psychiatrist: Yaakov Mcdonald MD Chief Complaint: Psychiatric Related Complaint Patient's Quote: "I feel suicidal. I had a plan to put a plastic bag over my head." Present Illness: The patient is a 60 year old male referred to the ED by [facility] with complaint of suicidal ideation with a plan to kill himself by putting a plastic bag over his head. The patient states he has been experiencing worsening depression and suicidal ideation over the past four days. The patient presented with flat affect, sad and depressed. He reports decreased energy, motivation and concentration. He reports decreased appetite (1 meal per day) and regular sleep of 6 hours per night with the assistance of Trazadone. The patient reports current depression as 8 of 10 and anxiety as 8 of 10 (10 being most severe). The patient reports a prior suicide attempt 22 years ago by overdosing on his Prozac. The patient denies HI and auditory or visual hallucinations. The patient reports his most recent trigger is unresolved grief over the of his by suicide two years ago and recently filing for bankruptcy. Per [facility], the patient recently tried to move from his son's house back into the house his committed suicide in and his depression has worsened since. The patient reports prior inpatient psychiatric treatment with his last being at [facility] from 02/22/16 to 02/29/16. The patient reports he is compliant with taking his prescribed psychiatric medication with the assistance of a visiting nurse. The patient reports that despite being compliant with his medication his depression and suicidal ideation continue to worsen. The patient agrees to admission for inpatient treatment to address his suicidal ideation and depression. This note prepared by CHANI De La Rosa Water Softener Servicer And Installer and signed off by Esau Pleitez LCSW Patient's Address: [address] [place] [address] Other Phone Number: Who Do You Live With? Son Family/Informants Interviewed: May from [facility] Allergies - Coded Allergies: Penicillins (RASH 11/11/15) Current Medications - Scheduled Medications Escitalopram Oxalate (Lexapro) 20 MG TABLET 20 MG PO DAILY DEPRESSION #14 TAB Prescribed by GOUKL JOHN APRN on 02/29/16 Lamotrigine (Lamictal) 200 MG TABLET 1 TAB PO QPM MENTAL HEALTH (Reported) Entered as Reported by SARAHI MINOR on 12/01/15 1701 Levothyroxine Sodium 0.15 MG TAB 1 TAB PO DAILY AC THYROID #30 (Reported) Entered as Reported by REMIGIO SMITH on 10/02/14 09 Lisinopril 2.5 MG TABLET 2.5 MG PO QAM BLOOD PRESSURE #14 TAB Prescribed by GOKUL JOHN APRN on 02/29/16 [place] Carbonate 300 MG CAPSULE 2 TAB PO QPM MENTAL HEALTH (Reported) Entered as Reported by [place] on 11/11/15 213 [place] Carbonate 300 MG CAPSULE 1 CAP PO QAM MENTAL HEALTH (Reported) Entered as Reported by SARAHI MINOR on 12/01/15 170 Metformin Hydochloride (Glucophage) 500 MG TABLET 500 MG PO 0800,1700 DIABETES #28 TAB Prescribed by GOKUL JOHN APRN on 02/29/16 Propranolol HCl 10 MG TABLET 1 TAB PO BID TREMORS (Reported) Entered as Reported by [place] on 11/11/152129 Risperidone 2 MG TABLET 1 TAB PO QPM MENTAL HEALTH #30 (Reported) Entered as Reported by REMIGIO SMITH on 02/22/16 1037 Risperidone 0.5 MG TABLET 1 TAB PO BID MENTAL HEALTH #90 (Reported) Entered as Reported by REMIGIO SMITH on 02/22/16 1037 Trazodone HCl 50 MG TABLET 50 MG PO 2230 SLEEP #14 TAB Prescribed by GOKUL JOHN APRN on 02/29/16 Scheduled PRN Medications Clonazepam 0.5 MG TABLET 1 TAB PO PRN ANXIETY (Reported) Entered as Reported by [place] on 11/11/152130 Laboratory Results: Laboratory Tests 04/04/16 1601: Urine Opiates Screen < 100.00, Methadone Screen 61, Barbiturate Screen < 60, Ur Phencyclidine Scrn < 6.00, Amphetamines Screen < 100, U Benzodiazepines Scrn < 85, Urine Cocaine Screen < 50, Urine Cannabis Screen < 5.00 04/04/16 1553: Anion Gap 13, Estimated GFR > 60, BUN/Creatinine Ratio 15.0, Glucose 96, Calcium 9.9, Total Bilirubin 0.7, AST 24, ALT 30, Alkaline Phosphatase 75, Total Protein 7.2, Albumin 4.4, Globulin 2.8, Albumin/Globulin Ratio 1.6, CBC w Diff NO MAN DIFF REQ, RBC 4.88, MCV 92.5, MCH 31.3 H, RDW 13.1, MPV 8.0, Gran % 71.2, Lymphocytes % 13.7 L, Monocytes % 9.1, Eosinophils % 5.6 H, Basophils % 0.4, Absolute Granulocytes 5.3, Absolute Lymphocytes 1.0 L, Absolute Monocytes 0.7 H, Absolute Eosinophils 0.4, Absolute Basophils 0, PUBS MCHC 33.8, [place] 0.9, Serum Alcohol < 10.0 (DONTA ODD TICKET CLERK,ESAU) Past History Past Medical History Neurological: NONE EENT: NONE Cardiovascular: hypertension Respiratory: SLEEP APNEA USES CPAP AT HOME Gastrointestinal: constipation, diverticulitis Hepatic: NONE Renal: NONE Musculoskeletal: NONE Psychiatric: anxiety, depression Endocrine: hypothyroidism, "BORDERLINE DIABETES" Blood Disorders: NONE Cancer(s): NONE COMPUTER CLERK/Reproductive: NONE Past Surgical History Surgical History: non-contributory Psychosocial History Strengths/Capabilities: Patient is able to articulate his wants and needs. Patient is connected to treatment at this time. Pt has a supportive family. Physical Limitations (Interventions): None identified. Psychiatric Treatment History Psych Treatment Psychiatric Treatment Yes Inpatient Treatment Yes Outpatient Treatment Yes Location of Treatment [facility] Reason for Treatment Depression Dates of Treatment [facility]- 02/22/16-02/29/16; [facility]-Current Response to Treatment Patient continues to have worsening depression and SI despite being compliant with psychiatric medication. The patient has a visiting nurse. Diagnosis by History: MDD, recurrent, severe; Bipolar D/O Substance Use/Abuse History Drug Use/Abuse Substances Used/Abused Yes Substance Used/Abused Alcohol First Use 18 years old Last Used Superbowl-03/27/15 How much used/taken 4 beers How often 1-2 times a month For how long Since age 18 Route of use Oral Substance Abuse Treatment Substance Abuse Treatment Past Substance Abuse [place] No Inpatient Treatment No Outpatient Treatment No Location of Treatment N/A Reason for Treatment N/A Dates of Treatment N/A Response to Treatment N/A Comments: None (ESAU PLEITEZ LCSW) Current Mental Status Mental Status Orientation: Person, Place, Situation Affect: Depressed, Flat, Hopeless, Sad Speech: WNL Neuro-vegetative: Appetite Decreased, Concentration Poor, Energy Decreased, Helpless, Loss of Interest, Sexual Interest Decreased Appearance Appearance- Dress/Hygiene: Patient was dressed in hospital scrubs and hygenic. Behaviors Thought Process: WNL Thought Content: WNL Memory: WNL Insight: Fair SI/HI Risk Assessment Past Suicidal Ideation/Attempts Yes Current Suicidal Ideation/Att Yes (Putting pastic bag over head) Past Homicidal Ideation/Att: No Current Homicidal Ideation/Attempts No Degree of Intent: Plan, States Intent Danger To: Self Gravely Disabled: N/A Risk Factors: high anxiety/distress, history of suicide atmpts, SA/MH hospitalized, lack of outcome concern, male Lethality Ratin PTSD Checklist PTSD Done? patient declined ED Management Sitter: Yes Restraints: No (ESAU PLEITEZ LCSW) DSM5/PS Stressors/Medical Prob Diagnosis' (DSM 5, Stressors, Medical): F32.9 Unpecified Depressive Disorder Rule - out for bipolar disorder. Current GAF: 25 Comments: Patient presents with worsening depression and suicidal ideation with plan of putting a plastic bag over his head over the past four days. (ESAU PLEITEZ LCSW) Departure Disposition Psych Medical Clearance Date: 04/04/16 Medically Cleared at: 1900 Time Started: 1899 Time Ended: 1944 Psychiatrist Consulted: Yaakov Mcdonald MD Date Disposition Established: 04/04/16 Time Disposition Established: 1944 Plan for Disposition - Modality: Bed Search Rationale for Disposition: Patient presents with worsening depression and suicidal ideation with plan of putting a plastic bag over his head over the past four days. patient to be admitted for safety and to assess medication. Type of IP Admission: Voluntary Additional Instructions: None Referrals KARIE PACHECO MD (PCP/Family) (ESAU PLEITEZ LCSW) Addendum Addendum Re-evaluated pt this morning, pt continues to endorse suicidal thoughts, and can not manage the grief and financial stress at home. Consulted with Dr. Gallego pt to be admitted to [facility]. Pt signed in voluntarily. (MIGUELITO VALENZUELA,JONO)
--- NOTE | 2016-04-04 21:30 | NUR ---
PT LYING ON BED WATCHING TV. PT CALM AND COOPERATIVE.
--- NOTE | 2016-04-04 22:41 | NUR ---
PT MEDICATED WITH TRAZODONE 75MG FOR SLEEP. PT CALM AND COOPERATIVE, WATCHING TV. SITTER AT DOOR.
--- NOTE | 2016-04-04 23:07 | NUR ---
RECIEVED REPORT FROM JESUS TORRES. PT SLEEPING AT THIS TIME. REGULAR RESPIRATIONS NOTED. SITTER IN PLACE FOR SAFETY.
--- NOTE | 2016-04-05 01:09 | NUR ---
PT REMAINS SLEEPING AT THIS TIME, NO DISTRESS NOTED, REGULAR RESPIRATIONS. SITTER IN PLACE FOR SAFETY.
--- NOTE | 2016-04-05 03:12 | NUR ---
PT SLEEPING AT THIS TIME, REGULAR RESPIRATIONS NOTED. OFFERING NO COMPLAINTS. SITTER IN PLACE FOR SAFETY.
--- NOTE | 2016-04-05 05:53 | NUR ---
PT CONTINUES TO SLEEP AT THIS TIME. REGULAR RESPIRATIONS NOTED. NAD. SITTER IN PLACE FOR SAFETY.
--- NOTE | 2016-04-05 08:02 | NUR ---
ASSUMED CARE OF PT WHO AWAKE, LYING ON BED QUIETLY. PT HAS NO COMPLAINTS AT THIS TIME. SITTER REMAINS AT DOORWAY FOR SAFETY, LIGHTS DIMMED FOR COMFORT
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
--- NOTE | 2016-04-05 12:00 | NUR ---
PT AMBULATORY TO BATHROOM. PT ATE LUNCH AND IS RESTING COMFORTABLY IN ROOM. PT CALM AND COOPERATIVE. PENDING TRANSFER DOWN TO [facility].
--- NOTE | 2016-04-05 14:48 | NUR ---
PT CAME OUT OF HIS ROOM ASKING IF HE WAS STILL GOING TO BE ADMITTED. THIS RN REASSURED HIM THAT HE WILL BE GOING DOWNSTAIRS THIS AFTERNOON. PT CALM AND COOPERATIVE.
--- NOTE | 2016-04-05 15:30 | NUR ---
PT LYING ON BED WATCHING TV. PT CALM AND COOPERATIVE.
--- NOTE | 2016-04-05 16:05 | NUR ---
PT EATING DINNER AT THIS TIME. PT CONTINUES TO BE CALM AND COOPERATIVE. PENDING TRANSFER DOWN TO [facility].
--- NOTE | 2016-04-05 16:57 | NUR ---
PT LYING ON BED WATCHING TV AND SLEEPING AT TIMES. PT REMAINS CALM AND COOPERATIVE. PENDING TRANSFER DOWN TO [facility].
--- NOTE | 2016-04-05 17:50 | NUR ---
PT ASLEEP AT THIS TIME WITH TV ON. RESPIRATIONS EQUAL AND UNLABORED. SITTER AT DOOR FOR SAFETY
--- NOTE | 2016-04-05 22:04 | NUR ---
Patient admitted to [facility] from ER. Patient reports safety while on the unit and does not endorse SI. Patient alert and oriented to person place time and situation. Patient lethargic and slowed responses to interview questions. Patient saddened by recent move to home of emotional trauma. Patient denies pain, reports medication compliance and able to recall medication for reconcilation. Patient reports support from sons and looks froward to "getting better". Looking forward to assisting Luc with mental health.
--- NOTE | 2016-04-06 04:05 | NUR ---
PT APPEARED TO SLEEP.
[2016-04-06 07:58] VITALS: BP 101/67
--- NOTE | 2016-04-06 11:40 | NUR ---
PT IS DEPRESSED AND EXTREMELY FLAT. DOES NOT ENGAGE WITH PEERS/STAFF UNLESS PROMPTED BY OTHERS. PT HAS BEEN VISIBLE WITHIN THE MILIEU BUT REMAINS ON THE PERIPHERY. ATTENDED ALL GROUPS THIS AM SHIFT. DURING FOCUS GROUP PT REPORTED THAT HE "PLACED A PLASTIC BAG AROUND MY HEAD" IN AN ATTEMPT TO "KILL MYSELF" PRIOR TO ADMISSION THAT HE REPORTED NOT SHARING WITH THE CRISIS TEAM. PT FEELS "HOPELESS" AND IS TIRED OF "HAVING TO KEEP BEING ADMITTED" TO THE UNIT. VS ARE STABLE AND DENIES ANY SI/HI CURRENTLY TO THIS MHW.
--- NOTE | 2016-04-06 12:05 | CPS MD/APRN INITIAL ASSE PSYCH ---
Psychiatric Admission City Surveyor's Note Reviewed: Yes Patient Seen and Examined: Yes Identifying Information: Patient is a 60-year old , male. Chief Complaint: "I put a plastic bag over my head but it was too small." Reaction to Hospitalization: "I feel ok here." History of Present Illness Onset of Illness: Patient with a history of refractory depression over the past many years. He was transferred from [facility] to ED on 04/04/16 after reporting +SI with plan to place a plastic bag over his head. Presently receives visiting nurse services and reported adherence to prescribed medications. Major triggers to recurrence of SI include unresolved grief from his 's by suicide 2 years ago and recently moving back into the home where his committed suicide, with his sons; and recent filing for bankruptcy. Patient reported today that on Monday night, 04/03/16, he had attempted to place a plastic bag over his head in attempt to suicide, however he stopped after realizing the bag he used was too small. He reported he attempted this when his family was asleep. Circumstances Leading to Admission: Filing for bankruptcy, grieving over 's by suicide x 2 years ago, recently moving back into the home with his sons where his committed suicide. 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 Past Psychiatric History Past Diagnosis(es)- if any: Major depression, recurrent, severe with suicidal ideation. Unspecified bipolar disorder, depressed. Generalized anxiety disorder. Past Precipitating Factors- if any: Patient's of suicide with the patient's tricyclic antidepressant medications in December 2013. - Include inpatient and outpatient treatment Treatment History: Multiple prior [facility] hospitalizations. Prior [facility] admission in 2016. This is the patient's 10th [facility] admission since 06/2014. Per Chart review: IOP several times since the of his . Outpatient - OPS for medication management Hx ECT Past Medication Trials (per chart review): klonopin 0.5mg QHS Nortriptyline 125mg QHS ([id number]) - "think was helpful" wellbutrin - "increased anxiety" prozac - "increased anxiety" zoloft - "increased anxiety" effexor - increased anxiety" cymbalta - "increased anxiety" lithium Tegretol abilify - doesn't remember zyprexa geodon ?Clozaril ketamine ECT melatonin History of Suicide Attempts or Gestures Per chart review, the patient reported suicide attempt by putting a plastic bag over his head to "practice" suicide in 2014. Patient presented for present admission due to endorsing thoughts to do the same, and disclosed attempting to the night before disclosing +SI and plan to IOP provider. Patient reported prior overdose attempt on Prozac in 1994. Substance Abuse History: Pt denies alcohol or substance abuse. Reported occasional use of alcohol. Reported distant history of MJ and cocaine use. No recent use of illicits. Allergies: Coded Allergies: Penicillins (RASH 11/11/15) Home Med List: Per IOP progress note (04/04/16), current medications: risperdal 0.5mg twice daily (AM and afternoon) risperdal 2mg daily bedtime lithium 300mg daily AM lithium 600mg daily PM lamictal 200mg daily PM lexapro 20mg daily AM trazodone 75mg daily bedtime glucophage 500mg twice daily inderal 10mg twice daily synthroid 0.15mg daily AM prinivil 2.5mg daily - Include any medical condition(s) that may - impact the patient's recovery/remission Past Medical History: hypothyroid DMII sleep apnea on CPAP HTN Past History Medical History Neurological: NONE EENT: NONE Cardiovascular: hypertension Respiratory: SLEEP APNEA USES CPAP AT HOME Gastrointestinal: constipation, diverticulitis Hepatic: NONE Renal: NONE Musculoskeletal: NONE Psychiatric: anxiety, depression Endocrine: hypothyroidism, "BORDERLINE DIABETES" Blood Disorders: NONE Cancer(s): NONE 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 History of MRSA: No History of VRE: No History of CDIFF: No Isolation History: Standard Influenza Vaccine: 10/27/15 Surgical History Surgical History: TONSILLECTOMY Psychiatric Family/Social Hx Family History Psychiatric Illness: Per chart review/patient verified: Sister - anxiety, depression on prozac Youngest son - depression on zoloft Substance Use: Per chart review/ patient verified: 2 maternal uncles - alcoholic 1 paternal uncle - alcoholic Father "possible" alcoholic Suicides: Per chart review/ patient verified: by OD on patient's Nortriptyline 2013 Other Family History: Per chart review/patient verified: Father had colon cancer, mother had kidney disease Social History Living Situation: Patient moved back into the house where his committed suicide 2 weeks ago with his 2 son's and oldest son's girlfriend. Significant Relationships (family/friends): 2 sons. 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 Currently unemployed. Legal: Recently filed for bankruptcy. Healthly Behaviors Screening Tobacco Screening Tobacco Use from ED Docu: Never used - If tobacco counseling indicated - the following topics are required. - #1 Recognizing dangerous situations. - #2 Coping Skills. - #3 Basic information about quitting. Status of Tobacco Cessation Counseling: N/A B/C NO TOB USE Cessation Med Status: No Tobacco Use last 30d Alcohol Screening - ETOH screen POS if BAL >=80 or Audit-C>= M4/F3 Audit-C Score from Diag Assess: 2 Blood Alcohol Level: Laboratory Tests 04/04 1553 Toxicology Serum Alcohol (<10 MG/DL) < 10.0 Alcohol Use Screening Results: Neg per Audit C &/or BAL - If ETOH counseling indicated - the following topics are required. - #1 Express concern about the patient's - drinking at unhealthy levels, include informing - of national norms for moderate drinking: - men <= 14 drinks/week, max 4 drinks/occasion - women <= 7 drinks/week, max 3 drinks/occasion - #2 Providing feedback, including linking alcohol to - negative physical effects (liver injury, hypertension) - negative emotional effects (relationship problems and - depression) - negative occupational consequences (reduced work - performance) - #3 Advising the patient to abstain from alcohol or - to drink below national norms for moderate drinking - (as listed above). Status of ETOH Use Counseling: #1, #2 AND #3 Completed. Metabolic Screening - Screen if on a Neuroleptic Medication - Metabolic screening should include: - Blood Pressure, BMI, Glucose or Hgb A1c, & a - Lipid profile from within the past 365 days. Metabolic Screening () Not Applicable, patient not on a neuroleptic. OR ([X]) Patient on a neuroleptic(s) . Enter below results for Glucose or Hemoglobin A1C, and lipid panel if obtained during the last 365 days. BMI: 29.500 Blood Pressure: 91/58 Laboratory Results (If applicable): Lab Cholesterol 146 MG/DL 10/14/15 1128 Cholesterol/HDL Ratio 3 % 10/14/15 1128 HDL Cholesterol 47 mg/dL 10/14/15 1128 Hemoglobin A1c 5.0 % 10/29/15 0624 LDL Cholesterol, Calc 68 mg/dL 10/14/15 1128 Triglycerides 155 mg/dL H 10/14/15 1128 Exam and Plan Mental Status Examination Ambulation Status: Steady and independent Appearance: 60 y/o CM, appears stated age. Average height, overweight, casually dressed in t -shirt and paper scrub pants, le hair. Attitude towards examiner: Cooperative, polite. Psychomotor activity: Somewhat slowed. Behavior: WNL Quality of speech: Normal in rate, tone and volume Affect: Constricted Mood: "Depressed" Suicidal Ideation: Patient reported passive wishes "of not wanting to be alive." Denied active SI, plans or intent. Gave safety promise while on unit. Homicidal Ideation: Pt denied. Hallucinations: Pt denied AVH. Paranoid/Delusional Material: None evident Difficulties with thought organization: None evident Insight: Fair Judgment: Fair Orientation: A&O to person, place, time. Cognition: Grossly intact Memory Function: Grossly intact Estimate of intellectual functioning: Above average Assets/Strengths Patient Identified Assets/Strengths: Motivated for treatment, supportive family Impression/Plan Impression and Plan: Patient is a 60-year old , male with a longstanding psychiatric history, diagnosed with treatment resistant MDD recurrent, severe (with hx suicide attempts) and multiple failed treatment trials including numerous psychotropics, ECT and Ketamine. Disclosed +SI and plan to place plastic bad over his head to IOP provider Antonella Ovalles APRN on 04/04/16. Disclosed to this freelance writer that he attempted plan on 04/03/16 but stopped after realizing bag was too small. Multiple triggers: moving back into the home with his family x 2 weeks ago where his had suicided, recent filing of bankruptcy, recently filed for disability, financial stress, and lack of protective factors. Will monitor the patient on unit for safety, suicidal ideation, and mood. Discussed use of Ritalin as an off-label treatment for treatment resistant depression, given failed treatments of numerous psychotropics, ECT and Ketamine. Reviewed the risk/benefit/SE profile of Ritalin including weight loss, appetite suppression, anxiety, irritability, headache and increased BP/HR. Patient denied a family cardiac history, or having a significant cardiac history himself. Patient with dx of HTN but currently controlled on antihypertensive. BP/HR wnl during hospital course. Will continue monitoring BP during Ritalin trial. Patient agreeable to trial. Will continue all other current prescribed medications for now. - Include all active medical diagnosis that require tx DSM 5 Diagnosis(es): Treatment resistant MDD recurrent, severe - Initial Tx Plan for Active Psych & Medical Conditions Treatment Plan: 1. Monitor the patient on unit for safety, suicidal ideation, and mood. 2. EKG ordered. 3. Start Ritalin 5mg QAM if EKG wnl. 4. Restart Synthroid 0.15mg daily for hypothyroidism. 5. Will hold inderal 10mg BID d/t hypotension. Will consider restarting if BP improves. Encourage po fluids. 6. Will increase Trazodone from 50mg QHS to 75mg QHS (home dose) for insomnia. 7. Obtain collateral from family and Antonella Ovalles APRN from [facility]. 8. Once symptoms are clinically stabilized, refer to [facility]. 9. Admission H&P per mechanic senior team. - Factors that would help patient function - in a less restrictive setting. Factors: Alleviation of SI Stabilization of depressive symptoms. Referral to [facility] level of care once stabilized.
[2016-04-06 12:32] VITALS: BP 91/58
--- NOTE | 2016-04-06 14:23 | SOCIAL WORKER PROG NOTE PSYCH ---
See Addendum Social Work Progress Note Progress Note Luc talked about feeling overwhelmed and anxious over "minor things'. Horner bad and Monday of last week and then reported that on Monday health underwriter he tried to put a bag over his head. I asked what happened? He said that the bag was too small. He then decided to just go to his room. He said that no one was aware of the incident at home, due to them being asleep at the time. Talks about feeling hopeless that things won't get better for him. Asked about current stressors at home in relation to his recent move. Luc reported that his sons have gotten along reasonably well, but Renny has a current complaint that Erwin (other son) doesn't clean up after himself. Luc feels that he plays peace keeper between the two. He also reported that in transition of the move they have not had cable, which means no TV or internet. These are Luc's favorite past times. He has been watching DVD's. States he has been consistently going to [facility] for the past several weeks. He reports that he has been trying to work on getting out of the house more, but he hasn't been successful. He has difficulty motivating himself. I asked if he thought a peer support could be helpful? He said if it was someone to meet with in the community. He doesn't want anyone coming to the house. I told him I would look into it for him. Luc signed releases for his sons and his therapist Jean-Paul Green in [place]. Luc asked me to reach out to his therapist , due to missing his appt. yesterday. I also told him I would attempt to schedule a family meeting with Renny. Right before ending our meeting, Luc informed me that he thinks his son wants him to live with his sister or brother in [place]. Luc is ambivalent about it, but feels he may have no option if Renny kicks him out. Called Jean-Paul Green [facility] [phone]. Luis was grateful for the call, as he had been worried about Luc. Talked about precipitating factors to hospitalization. They have been working on trying to move forward with volunteering, but things have been at a stand still with that. Luis and Luc have a standing appt. on Tuesdays at 10am. Will fax discharge info to: .
--- NOTE | 2016-04-06 14:35 | SOCIAL WORKER TX PLAN PSYCH ---
Treatment Plan - Please Document: - Evidence that there is ongoing collaboration between - the patient and the interdisciplinary team, - including the patient's active participation and - responsibility for engaging in the treatment regimen, - and that the treatment plan is individualized and - relevant to the patient's conditions. - Treatment plan should reflect documentation indicating - that all active therapeutic efforts are included. Strengths/Capabilities: Patient is able to articulate his wants and needs. Patient is connected to treatment at this time. Pt has a supportive family. Physical Limitations (Interventions): None identified. Patient Identified Trmt Goals: "I want to feel better about my life" Discharge Plan: Patient will return to [facility], VNS services, and live with family. Problem/Goals #1 Problem #1: depression Goal (Short Term): Patient will decrease anxiety and depression as evidenced by verbal rating (1-10 10 being worst) Goal (Support Specialist): patient will identify 2 goals to work towards out of the hospital that will assist with decreasing depressive symptoms Interventions: patient will be offered medication management with the CITY ASSESSOR, groups on symptom management, coping skills, relaxation skills, art therapy, goals group, accupuncture. contact worker will explore obstacles to working on goals, review relaxation techniques, and coordinate with family. Diet Technician Registered will set up aftercare. DSM5/PS Stressors/Medical Prob Diagnosis' (DSM 5, Stressors, Medical): F32.9 Unpecified Depressive Disorder Rule - out for bipolar disorder. Current GAF: 25 Treatment Team - Responsibilities of members of the treatment team include: - Medication Management- MD or CITY ASSESSOR - Medication Administration and Monitoring- Nurse - Group Therapy- Occupational Therapist - 1:1 Therapy,Disch Planning,family involvement-Diet Technician Registered
[2016-04-06 16:28] VITALS: BP 118/72
--- NOTE | 2016-04-06 16:49 | IP INCIDENTAL NOTE PSYCH ---
Incidental Note Notation: Collateral received from Antonella Ovalles APRN, from [facility]; per collateral: Patient is well known to her given his multiple trials at [facility], and has a hx of treatment resistent depression and possible bipolar disorder who has failed numerous psychotropic trials, ECT and Ketamine treatments. On 04/04/16, patient presented to [facility] with +SI and plan to place a plastic bag over his head. Antonella Ovalles APRN had no knowledge of the patient attempting this prior to his arrival to [facility] on 04/04/16, however reported that in the past the patient has "practiced " this to end his life. The only medication change made prior to the patient's hospital readmission had been increasing Trazodone from 50mg QHS to 75mg QHS for insomnia. Primary stressors include: financial stress, patient recently filing for bankruptcy, recent filing for disability which is pending, and moving back into the home where his suicided (approx 2 years ago), approx 2 weeks ago with his 2 sons and his oldest son's girlfriend. Patient presently has VNS for daily medication administration and has been adherent to prescribed medications. In terms of possible medication adjustments during this hospitalization, Antonella Ovalles APRN recommended a possible switch from Lexapro to Prozac, as the patient had reported previously doing well on this in the past (many years ago). However , of note, the patient had overdosed on this in the past when he had not been on Haena or Lamictal. A protective factor of retrialing this medication includes the patient now has a VNS. Antonella Ovalles APRN, also reported considering trials of psychostimulants to target treatment resistent depression, however felt this would most safely be trialed during an inpatient Hospitalization. Antonella Ovalles APRN, also recommended that the patient would possibly benefit from a longer- term hospitalization from [facility], or referral to a DBT program to counter his distorted thought process.
--- NOTE | 2016-04-06 19:16 | History & Physical ---
General Information and HPI MD Statement: I have seen and personally examined JOJO MCCARTHY JR and documented this H&P. The patient is a 60 year old M who presented with a patient stated chief complaint of "[address] bag over my head" "I feel suicidal". Source of Information: patient Exam Limitations: no limitations History of Present Illness: 60-year-old white male brought in by ambulance from [facility] due to positive suicidal ideations. He feels increasingly depressed over the weekend. Occasional alcohol and has no energy no motivation lack of concentration and poor appetite and doesn't feel safe for all those reasons is admitted for evaluation just movement of medications. Allergies/Medications Allergies: Coded Allergies: Penicillins (RASH 11/11/15) Home Med list Clonazepam 0.5 MG TABLET 1 TAB PO PRN ANXIETY (Reported) Escitalopram Oxalate (Lexapro) 20 MG TABLET 20 MG PO DAILY DEPRESSION Lamotrigine (Lamictal) 200 MG TABLET 1 TAB PO QPM MENTAL HEALTH (Reported) Levothyroxine Sodium 0.15 MG TAB 1 TAB PO DAILY AC THYROID (Reported) Lisinopril 2.5 MG TABLET 2.5 MG PO QAM BLOOD PRESSURE [place] Carbonate 300 MG CAPSULE 2 TAB PO QPM MENTAL HEALTH (Reported) [place] Carbonate 300 MG CAPSULE 1 CAP PO QAM MENTAL HEALTH (Reported) Metformin Hydochloride (Glucophage) 500 MG TABLET 500 MG PO 0800,1700 DIABETES Propranolol HCl 10 MG TABLET 1 TAB PO BID TREMORS (Reported) Risperidone 2 MG TABLET 1 TAB PO QPM MENTAL HEALTH (Reported) Risperidone 0.5 MG TABLET 1 TAB PO BID MENTAL HEALTH (Reported) Trazodone HCl 50 MG TABLET 50 MG PO 2230 SLEEP Compliance With Home Meds: GOOD Past History Travel History Traveled to [place] past 21 day No Medical History Neurological: NONE EENT: NONE Cardiovascular: hypertension Respiratory: SLEEP APNEA USES CPAP AT HOME Gastrointestinal: constipation, diverticulitis Hepatic: NONE Renal: NONE Musculoskeletal: NONE Psychiatric: anxiety, depression Endocrine: hypothyroidism, "BORDERLINE DIABETES" Blood Disorders: NONE Cancer(s): NONE ESTATE ATTORNEY/Reproductive: NONE History of MRSA: No History of VRE: No History of CDIFF: No Isolation History: Standard Influenza Vaccine: 10/27/15 Surgical History Surgical History: non-contributory Past Family/Social History Family History Relations & Conditions if any MOTHER Relation not specified for: FH: cancer Psychosocial History Who Do You Live With? self Services at Home: None Primary Language: Cook Islander ETOH Use: occasional use Illicit Drug Use: denies illicit drug use Living Will? unknown Functional Ability ADLs Independent: dressing, eating, toileting, bathing. Ambulation: independent IADLs Independent: shopping, housework, finances, food prep, telephone, transportation , medication admin. Employment History Employment Unemployed Review of Systems Review of Systems Constitutional: Reports: see HPI. Exam & Diagnostic Data Last 24 Hrs of Vital Signs/I&O Vital Signs Date Time Temp Pulse Resp B/P Pulse O2 O2 Flow FiO2 Ox Delivery Rate 04/06 1628 60 118/72 04/06 1232 66 91/58 04/06 0758 96.5 65 101/67 04/06 0746 64 119/68 Intake & Output 04/06 1600 04/06 0800 04/06 0000 Intake Total Output Total Balance Patient 200 lb Weight Physical Exam General Appearance Alert, Oriented X3, Cooperative, No Acute Distress Skin No Rashes, No Breakdown HEENT PERRLA, EOMI Neck Supple, No JVD Lymphatic Axillary nl, Cervical nl Cardiovascular Regular Rate Lungs Clear to Auscultation, Normal Air Movement Abdomen Normal Bowel Sounds, Soft, No Tenderness Neurological Exam Findings: nonfocal Cranial Nerves II through XII: Intact Last 24 Hrs of Labs/Loen: Laboratory Tests 04/04/16 1601: Urine Opiates Screen < 100.00, Methadone Screen 61, Barbiturate Screen < 60, Ur Phencyclidine Scrn < 6.00, Amphetamines Screen < 100, U Benzodiazepines Scrn < 85, Urine Cocaine Screen < 50, Urine Cannabis Screen < 5.00 04/04/16 1553: Anion Gap 13, Estimated GFR > 60, BUN/Creatinine Ratio 15.0, Glucose 96, Calcium 9.9, Total Bilirubin 0.7, AST 24, ALT 30, Alkaline Phosphatase 75, Total Protein 7.2, Albumin 4.4, Globulin 2.8, Albumin/Globulin Ratio 1.6, Free T4 1.51, Total T3 0.86 L, TSH &T3 &Free T4 Intrp 0.216 L, CBC w Diff NO MAN DIFF REQ, RBC 4.88, MCV 92.5, MCH 31.3 H, RDW 13.1, MPV 8.0, Gran % 71.2, Lymphocytes % 13.7 L, Monocytes % 9.1, Eosinophils % 5.6 H, Basophils % 0.4, Absolute Granulocytes 5.3, Absolute Lymphocytes 1.0 L, Absolute Monocytes 0.7 H, Absolute Eosinophils 0.4, Absolute Basophils 0, PUBS MCHC 33.8, [place]rier 0.9, Serum Alcohol < 10.0 Assessment/Plan As Ranked By This Provider Problem List: 1. Major depression 2. SADIA (obstructive sleep apnea) 3. Suicidal ideations Miscellaneous Miscellaneous Documentation Attending Case Discussed With: JOCELYNE HAILE MD Primary Care Physician: KARIE PACHECO MD Patient sees these Specialists Psychiatry Level of Patient Care: [facility] Consults Needed: Consulting Specialty: Psychiatry Consulting Physician: Dr. Haile Reason for Consult: suicidal ideations, depression
[2016-04-06 19:42] VITALS: BP 107/69
--- NOTE | 2016-04-06 21:46 | NUR ---
PT IS VISIBLE ON UNIT, WATCHING TV IN LOUNGE BUT HAS MINIMAL INTERACTION WITH PEERS. COOPERATIVE AND COMPLIANT WITH STAFF. ATTENDED WRAP UP MEETING AND PARTICIPATED. NO COMPLAINTS OR SI REPORTED TO THIS MHW. PT HAS A DEPRESSED MOOD AND FLAT AFFECT.
--- NOTE | 2016-04-07 04:20 | NUR ---
SLEPT WELL, CPAP IN USE
[2016-04-07 07:34] VITALS: BP 100/65
[2016-04-07 12:24] VITALS: BP 98/56
--- NOTE | 2016-04-07 13:22 | SOCIAL WORKER PROG NOTE PSYCH ---
Social Work Progress Note Progress Note Renny Davis's son left a message cancelling the family meeting for today, due to awaiting cable at the house. I called back and left a message to reschedule for tomorrow. Talked to Luc and informed him of the cancellation. Luc denies SI today. Says he really hasn't had any suicidal thoughts since the ER. He didn't sleep well last night. Trouble getting to sleep and then describes a disrupted sleep pattern. We talked about his son presenting the idea of him moving to [place]. It sounds as if it was presented as an option to try and get Luc into a different environment thinking it may do him some good. Luc thinks he is trying to get rid of him and that he is sick of him. I told him that his son just probably doesn't know how to help or what will help. Luc stated he doesn't feel any change from the start of the Ritalin. He asked if he was going to be seeing Dea Zuñiga APRN today? I told him he will see her this afternoon.
--- NOTE | 2016-04-07 13:27 | CP SOUTH PROGRESS NOTE PSYCH ---
See Addendum Psych (Inpt) Progress Note Progress Note Include the following elements, when applicable: Involvement in the active treatment of the patient with behavioral observations of the patient and the patient's response to the treatment. Review of the ongoing treatment process in the context of the treatment plan. Indication of how multi-disciplinary staff members are carrying out the treatment plan. Plans for future interventions and recommendations for revision of the treatment plan. Liaison with other physicians/providers. Progress Note: [I discussed this patient's progress to date, current mental status, treatment process in the context of the treatment plan, and discharge planning with staff/ team in the daily morning inpatient team meeting. I also met with the patient myself in individual session.] SUBJECTIVE: "My anxiety is better." OBJECTIVE: Current Medications Sig/Josesito Start time Last Medication Dose Route Stop Time Status Admin Clonazepam 0.5 MG TID PRN 04/05 204 AC PO 04/12 2043 Diphenhydramine HCl 50 MG 04/07 220 AC PO Diphenhydramine HCl 50 MG AT BEDTIME PRN 04/07 1400 AC PO Escitalopram Oxalate 20 MG DAILY 04/06 1000 AC 04/07 PO 0813 Lamotrigine 200 MG AT BEDTIME 04/05 2200 AC 04/06 PO 213 Levothyroxine Sodium 0.15 MG DAILY AC 04/07 0700 AC 04/07 PO 0634 Lisinopril 2.5 MG QAM 04/06 1000 AC 04/07 PO 0813 [place] Carbonate 300 MG QAM 04/06 1000 AC 04/07 PO 0813 [place] Carbonate 600 MG QPM 04/05 2200 AC 04/06 PO 2139 Metformin HCl 500 MG 0800,1700 04/06 0800 AC 04/07 PO 0813 Methylphenidate HCl 5 MG 0800,1300 04/08 0800 AC PO Methylphenidate HCl 5 MG 0800 04/07 0800 DC 04/07 PO 0813 Risperidone 2 MG AT BEDTIME 04/05 2200 AC 04/06 PO 213 Risperidone 0.5 MG BID 04/05 2200 AC 04/07 PO 0814 Trazodone HCl 75 MG 0 04/06 223 DC 04/06 PO 2140 Trazodone HCl 50 MG 22304/05 2230 DC 04/05 PO 2208 Vital Signs Date Time Temp Pulse Resp B/P Pulse O2 O2 Flow FiO2 Ox Delivery Rate 04/07 1224 65 98/56 04/07 0813 97.8 82 18 100/65 04/07 0734 97.8 82 100/65 04/06 2350 96 04/06 1942 98.0 75 107/69 04/06 1628 60 118/72 ASSESSMENT: Chart, progress notes, labs, VS and medication list were reviewed. Met with patient today. He presented alert and oriented to person, place, and time. Speech was normal in rate, tone and volume. Affect appeared flat. Mood was "not bad." Patient denied adverse effects from Ritalin (started at 5mg this AM), and feeling largely unchanged. He reported decreased anxiety of 4/10 (10 being the worst) and depression of 4/10 (10 being the worst). He reported feeling hopeless about his "future" and "if I'm every going to get better or go back to work." He reported feeling worthless. He denied feeling helpless and guilty. Was visible in milieu observed attending groups today versus yesterday when he remained isolative. He demonstrated some insight, reporting that his primary trigger to recent suicide attempt was living in the house where his had committed suicide. He reported that this living situation was temporary, and reported if his motivation improved this would allow him to get out of the house to engage in other activities. He denied active/passive suicidal ideation, plans or intent. He denied homicidal ideation. He denied auditory and visual hallucinations. Thought process was organized and linear. Thought content was appropriate. Cognition was grossly intact. Reported poor sleep and awakening frequently throughout the night. Reported good effect from benadryl in the past. Patient elected to discontinue Trazodone as has not found this to be helpful. Will discontinue Trazodone and start Benadryl at HS to target insomnia. He reported tolerating introduction to Ritalin well, and denied untoward effects. He was agreeable to increasing dose to 5mg BID to further target tx resistant depression. PLAN: 1. Continue monitoring the patient on unit for safety, suicidal ideation, and mood. 2. Increase Ritalin to 5mg BID to target tx resistant depression. 3. Discontinue Trazodone. Start Benadryl 50mg at HS for insomnia. Will also add Benadryl 50mg prn at bedtime for insomnia. 4. Family meeting tomorrow with patient and son. 5. Dispo planning per primary team.
--- NOTE | 2016-04-07 13:52 | NUR ---
PT IS COMPLIANT AND COOPERATIVE. MOOD IS STABLE WITH A FLAT AND EUTHYMIC AFFECT. PT DENIES SI AT THIS TIME, NO COMPLAINTS OFFERED. PT IS PRESENT IN THE COMMUNITY AND HAS SOME INTERACTION WITH PEERS AND STAFF. PT IS ATTENDING GROUPS. BS IS WNL (107 @0800). VITALS ARE STABLE, APPETITE IS GOOD.
[2016-04-07 16:18] VITALS: BP 116/74
[2016-04-07 20:12] VITALS: BP 125/79
--- NOTE | 2016-04-07 21:04 | NUR ---
PT IS CALM, COOPERATIVE WITH STAFF AND PEERS, AND COMPLIANT WITH UNIT RULES. PT IS POFTEN IN [place], THOUGH IS WITHDRAWN, NOT INTERACTING MUCH WITH OTHERS. PT WILL INTERACT THOUGH WHEN DIRECTLY ENGAGED, THOUGH VERY PASSIVE IN SPEECH. MOOD IS STABLE, AFFECT IS FLAT/CONSTRICTED, COMMUNICATION IS NORMAL, AND APPETITE IS NORMAL. PT BLOOD GLUCOSE AT 1630 WAS 109. PT DENIES SI AT THIS TIME.
--- NOTE | 2016-04-08 04:42 | NUR ---
SLEPT WELL C-PAP IN PLACE.
[2016-04-08 08:01] VITALS: BP 113/75
--- NOTE | 2016-04-08 11:27 | SOCIAL WORKER PROG NOTE PSYCH ---
Social Work Progress Note Progress Note Ryan's son Renny came in for a family meeting. Dea Zuñiga APRN was also part of the meeting. Talked about goals of getting out of the house and participating in various activities through volunteering, senior center, library. Talked about how I am trying to see if Luc would qualify for peer support to assist with community activities. He has been paralzyed from his anxiety and he seems unable to take the steps necessary to work on these goals. Son thought that visiting his Brother in [place] may help Luc. Luc doesn't want to go to [place] unless he is feeling better. Dea Zuñiga APRN talked about how she started Luc on a stimulant (Ritalin) to try and help motivate him. So far Luc has tolerated the low dose. Dose will be increased over the weekend. Renny feels that Luc had tolerated the move to the old house pretty well. There is obvious conflict and stress between Renny and Erwin, due to Erwin's behavior or lack of contributing in various ways. Renny describes him as a "leech". Luc has difficulty being tougher on Erwin because he tends to emphathize with him more. Renny's goal is to continue to save for a house and move from the current residence when they get evicted. Luc continues to deny SI. Wants to know that he feels good before he leaves here, stating that he doesn't want to come back. Talked about him continuing in IOP and that I will set up a tentative appt. for Monday in case he is ready to go. Called and scheduled an intake for 12:45pm. on Monday. Son will pick him up after the appt. if he goes. I was able to talk to someone at [facility] about the peer support program, Luc would not qualify for their services. Their system only flags certain individuals for the program, based on high cost claims.
[2016-04-08 12:11] VITALS: BP 130/72
--- NOTE | 2016-04-08 14:27 | CP SOUTH PROGRESS NOTE PSYCH ---
Psych (Inpt) Progress Note Progress Note Include the following elements, when applicable: Involvement in the active treatment of the patient with behavioral observations of the patient and the patient's response to the treatment. Review of the ongoing treatment process in the context of the treatment plan. Indication of how multi-disciplinary staff members are carrying out the treatment plan. Plans for future interventions and recommendations for revision of the treatment plan. Liaison with other physicians/providers. Progress Note: [I discussed this patient's progress to date, current mental status, treatment process in the context of the treatment plan, and discharge planning with staff/ team in the daily morning inpatient team meeting. I also met with the patient myself in individual session.] SUBJECTIVE: "I feel better." OBJECTIVE: Current Medications Sig/Josesito Start time Last Medication Dose Route Stop Time Status Admin Clonazepam 0.5 MG TID PRN 04/05 2045 AC PO 04/12 2043 Diphenhydramine HCl 50 MG 0 04/070 AC 04/07 PO 2256 Diphenhydramine HCl 50 MG AT BEDTIME PRN 04/07 1400 AC PO Escitalopram Oxalate 20 MG DAILY 04/06 1000 AC 04/08 PO 0805 Lamotrigine 200 MG AT BEDTIME 04/05 2200 AC 04/07 PO 2146 Levothyroxine Sodium 0.15 MG DAILY AC 04/07 0700 AC 04/08 PO 0805 Lisinopril 2.5 MG QAM 04/06 1000 AC 04/08 PO 0805 [place] Carbonate 300 MG QAM 04/06 1000 AC 04/08 PO 0805 [place] Carbonate 600 MG QPM 04/05 2200 AC 04/07 PO 2145 Metformin HCl 500 MG 0800,1700 04/06 0800 AC 04/08 PO 0805 Methylphenidate HCl 5 MG 0800,1300 04/08 0800 AC 04/08 PO 1310 Risperidone 2 MG AT BEDTIME 04/05 2200 AC 04/07 PO 2145 Risperidone 0.5 MG BID 04/05 2199 AC 04/08 PO 0805 Vital Signs Date Time Temp Pulse Resp B/P Pulse O2 O2 Flow FiO2 Ox Delivery Rate 04/08 1211 90 130/72 04/08 0805 96.6 71 18 113/75 04/08 0801 96.6 71 113/75 04/07 2011 97.0 74 125/79 04/07 1618 66 116/74 ASSESSMENT: Chart, progress notes, VS, FS, labs and medication list reviewed. Met with the patient today, together with his son Renny and Paz Molina LCSW, for a family meeting. The patient's treatment progress to date, medication regimen, level of safety, and discharge planning were reviewed. Please see Paz Molina LCSW's note for additional information regarding meeting. On encounter today, the patient presented A&Ox3. Affect was constricted. Mood was "better." Speech was normal in rate, tone and volume. Eye contact was good. He had no complaints. Patient reported anxiety of 3/10 (10 being the worst) and depression of 3/10 (10 being the worst). He reported some feelings of helplessness and hopelessness. He denied feeling worthless and guilty. He denied active and passive suicidal ideation, plans and intent. He denied homicidal ideation. He reported a subtle improvement in his energy level, and reported talking more in groups today since increase in Ritalin from 5mg QAM to 5mg BID. He reported tolerating increase in Ritalin well; denied symptoms of jitteriness, anxiety, irritability, ANGULO, palpitations. VSS. He denied auditory and visual hallucinations. There was no evidence of manic or psychotic symptoms. Thought process was organized and linear. Thought content was appropriate. Cognition was grossly intact. Patient reported improved sleep on Benadryl 50mg at bedtime and discontinuation of Trazodone. He expressed some concern about whether he would have difficulty falling asleep tonight d/t afternoon dose of Ritalin. Reviewed with patient that Ritalin IR is a short-acting medication and likely would not interfere with his falling alseep tonight. Encouraged him to utilize prn Benadryl in addition to scheduled Benadryl for insomnia if he experienced DFA. Also encouraged patient to discuss this with psychiatrist tomorrow, if it should occur. PLAN: 1. Continue current medications. 2. If patient has DFA/staying asleep, consider changing Ritalin 5mg BID to 10mg QAM over the weekend to target tx resistant depression. 3. Continue monitoring the patient on unit for safety, suicidal ideation and mood. 4. [place] level scheduled tomorrow at 0600. 5. Dispo planning per primary team.
--- NOTE | 2016-04-08 14:44 | NUR ---
PT IS STABLE WITH FLAT, DEPRESSED AFFECT. PT DOES NOT ENGAGE WITH STAFF/PEERS UNLESS PROMPTED. PT SITS QUIETLY IN THE LOUNGE AND READS OR SITS WITH HIS EYES CLOSED. ATTENDING GROUPS. PT DID NOT REPORT ANY SI. VS ARE STABLE.
[2016-04-08 16:11] VITALS: BP 142/81
[2016-04-08 19:46] VITALS: BP 134/82
--- NOTE | 2016-04-08 21:22 | NUR ---
Pt is out in the kt most of the shift watching tv. Pt interacts with his peers cooperative and compliant with the staff, vital signs are stable and appetite is good. Will continue to monitor the pt overnight.
[2016-04-09 07:36] VITALS: BP 123/79
--- NOTE | 2016-04-09 10:01 | NUR ---
Dr. Serrano made aware of lithium level this am of 0.6 with no further orders at this time.
--- NOTE | 2016-04-09 11:25 | CP SOUTH PROGRESS NOTE PSYCH ---
Psych (Inpt) Progress Note Progress Note Include the following elements, when applicable: Involvement in the active treatment of the patient with behavioral observations of the patient and the patient's response to the treatment. Review of the ongoing treatment process in the context of the treatment plan. Indication of how multi-disciplinary staff members are carrying out the treatment plan. Plans for future interventions and recommendations for revision of the treatment plan. Liaison with other physicians/providers. Progress Note: Notes reviewed, d/w nursing staff. Interviewed patient this morning. Feeling well in general aside from reported difficulty sleeping last night. Would like to move his ritalin to [address] security dose. O/w says mood is "good", denies SI/HI /AVH. Vitals wnl. Labs rev'd, Li = 0.6 this am. MSE: adequately groomed CM dressed appropriately. Fair eye contact. No abn movements. Speech quiet, slow. Mood "good". affect constricted, congruent, full range. TP log/flaco. TC wnl. Denies SI/HI. Denies perceptual disturbances. Cognition grossly intact. I/J fair. A/P: As per senior clinician note suggestion, given self report of disrupted sleep will move total ritalin dose to 8AM qdaily. Otherwise continue remainder of plan per primary team.
[2016-04-09 11:49] VITALS: BP 118/70
--- NOTE | 2016-04-09 13:55 | NUR ---
PT IS OUT IN COMMUNITY INTERACTING WITH STAFF AND PEERS. PT IS QUIET BUT DOES ENGAGE IN CONVERSATIONS WITH OTHER PTS. PT IS ATTENDING ALL GROUPS. PT MOOD IS STABLE WITH A FLAT AFFECT. PT DENIES SI THOUGHTS
[2016-04-09 15:41] VITALS: BP 132/75
[2016-04-09 19:26] VITALS: BP 127/78
--- NOTE | 2016-04-09 19:55 | NUR ---
PT IS VERY FLAT. DOES NOT ENGAGE WITH OTHERS UNLESS FIRST PROMPTED. PT SITS IN THE LOUNGE AND WATCHES TV SILENTLY. VERY VAGUE WHEN COMMUNICATING WITH STAFF. APPEARS TO HAVE A BIT MORE ENERGY THAN USUAL AND PT ATTRIBUTES THIS TO "MY NEW MEDICATIONS". VS ARE STABLE AND DENIES ANY SI/HI TO THIS MHW.
--- NOTE | 2016-04-10 06:28 | NUR ---
PT APPEARED TO SLEEP. ACCU CHECK 4 X A DAY.
[2016-04-10 07:41] VITALS: BP 117/71
[2016-04-10 12:06] VITALS: BP 123/79
--- NOTE | 2016-04-10 13:19 | CP SOUTH PROGRESS NOTE PSYCH ---
Psych (Inpt) Progress Note Progress Note Include the following elements, when applicable: Involvement in the active treatment of the patient with behavioral observations of the patient and the patient's response to the treatment. Review of the ongoing treatment process in the context of the treatment plan. Indication of how multi-disciplinary staff members are carrying out the treatment plan. Plans for future interventions and recommendations for revision of the treatment plan. Liaison with other physicians/providers. Progress Note: Notes reviewed, d/w nursing staff. Interviewed patient this morning. Feeling well in general. Again with difficulty sleeping last evening. He requests to take all of his available evening Benadryl as a single dose of 100 mg. Previously he was taking scheduled 50 mg Benadryl at bedtime with availability to take an additional as needed dose of 50 mg, which he reports he has tried and would prefer to take all at once. He denies any concerning anticholinergic side effects, and we agreed to try this facility. Otherwise, says mood is good, denies SI or HI, looking forward to discharge soon. Vitals wnl. No new labs today. MSE: adequately groomed CM dressed appropriately. Fair eye contact. No abn movements. Speech quiet, slow. Mood "good". affect constricted, congruent, full range. TP log/flaco. TC wnl. Denies SI/HI. Denies perceptual disturbances. Cognition grossly intact. I/J fair. A/P: Try a single dose of 100 mg Benadryl prior to sleep tonight. Otherwise continue remainder of plan per primary team.
--- NOTE | 2016-04-10 13:20 | NUR ---
PT IS OUT IN COMMUNITY INTERACTING WELL WITH STAFF AND PEERS. PT IS ACTIVE IN GROUPS. PT IS QUIET AT TIMES BUT SOICALIZES WELL WITH PEERS. PT MOOD IS STABLE WITH A FLAT AFFECT. PT DENIES SI THOUGHTS. PT IS COMPLAINT AND COOPEARTIVE
[2016-04-10 19:43] VITALS: BP 134/76
--- NOTE | 2016-04-10 21:11 | NUR ---
PT IS STABLE WITH A FLAT AFFECT. PT IS MORE EXPRESSIVE THAN UPON ADMISSION TO THE UNIT. CURRENTLY SITTING OUT IN THE KITCHEN WATCHING SPORTS WITH OTHER PEERS AND INTERACTING WITH THEM. PT IS POLITE AND APPROPRIATE TO THE UNIT, VERY PLESANT. VS ARE STABLE AND DENIES ANY SI/HI TO THIS MHW.
--- NOTE | 2016-04-11 05:53 | NUR ---
PATIENT UP TO BATHROOM SEVERAL TIMES DURING THE NIGHT; SLEPT MOST OF NIGHT OTHERWISE.
[2016-04-11 08:00] VITALS: BP 144/85
[2016-04-11 08:54] VITALS: BP 144/85
--- NOTE | 2016-04-11 10:11 | CP SOUTH PROGRESS NOTE PSYCH ---
See Addendum Psych (Inpt) Progress Note Progress Note Include the following elements, when applicable: Involvement in the active treatment of the patient with behavioral observations of the patient and the patient's response to the treatment. Review of the ongoing treatment process in the context of the treatment plan. Indication of how multi-disciplinary staff members are carrying out the treatment plan. Plans for future interventions and recommendations for revision of the treatment plan. Liaison with other physicians/providers. Progress Note: [I discussed this patient's progress to date, current mental status, treatment process in the context of the treatment plan, and discharge planning with staff/ team in the daily morning inpatient team meeting. I also met with the patient myself in individual session.] SUBJECTIVE: "I feel really good!" OBJECTIVE: Current Medications Sig/Josesito Start time Last Medication Dose Route Stop Time Status Admin Clonazepam 0.5 MG TID PRN 04/05 2045 AC PO 04/12 204 Diphenhydramine HCl 100 MG AT BEDTIME PRN 04/10 1316 AC 04/10 PO 2332 Diphenhydramine HCl 50 MG 0 04/07 2200 DC 04/09 PO 2121 Diphenhydramine HCl 50 MG AT BEDTIME PRN 04/07 1400 DC 04/09 PO 2314 Escitalopram Oxalate 20 MG DAILY 04/06 1000 AC 04/11 PO 0854 Lamotrigine 200 MG AT BEDTIME 04/10 2200 AC 04/10 PO 2219 Lamotrigine 200 MG AT BEDTIME 04/05 2200 DC 04/09 PO 2121 Levothyroxine Sodium 0.15 MG DAILY AC 04/07 0700 AC 04/11 PO 0713 Lisinopril 2.5 MG QAM 04/06 1000 AC 04/11 PO 0854 Leary Carbonate 300 MG QAM 04/06 1000 AC 04/11 PO 0855 Leary Carbonate 600 MG QPM 04/05 2200 AC 04/10 PO 2219 Metformin HCl 500 MG 0800,1700 04/06 0800 AC 04/11 PO 0854 Methylphenidate HCl 10 MG 0800 04/10 0800 AC 04/11 PO 0856 Risperidone 2 MG AT BEDTIME 04/05 2200 AC 04/10 PO 2219 Risperidone 0.5 MG BID 04/05 220 AC 04/11 PO 0854 Vital Signs Date Time Temp Pulse Resp B/P Pulse O2 O2 Flow FiO2 Ox Delivery Rate 04/11 0854 87 144/85 04/11 0800 97.6 87 144/85 04/10 1943 97.1 72 134/76 04/10 1206 78 123/79 Laboratory Tests 04/09 0558 Toxicology Leary (0.6 - 1.2 mmol/L) 0.6 ASSESSMENT: Met with the patient today, together with Paz Molina LCSW, on the date of discharge. Patient was alert and oriented to person, place, time and situation. Speech was normal in rate, tone and volume. Eye contact was appropriate. He reported improved energy and mood. He reported mood as "really good!" Affect appeared calm and constricted. He reported depression of 0/10 (10 being the worst) and anxiety of 0/10 (10 being the worst). Reported improved sleep since discontinuation of Trazodone and start of Benadryl at bedtime, but continued to report some disruption in sleep. He reported his appetite was good. He denied feeling hopeless, helpless, worthless and guilty. He denied passive and active suicidal ideation, plans and intent. He denied homicidal ideation. He stated and also believed he will not harm himself or others. He denied auditory and visual hallucinations. There was no evidence of paranoia or delusions. Thought process was linear and goal-directed. Thought content was appropriate. Cognition was grossly intact. He reported feeling safe and ready for discharge, and was in favor of scheduled after care plan at [facility] and resuming VNS services with [facility]. PLAN: 1. Discharge today to home and into the care of son Renny. 2. All discharge prescriptions, except for Ritalin 10mg po daily, #14,NR, were e -rx to [facility] (#[phone]) per VNS request. VNS to resume services at 2:30pm today. Handwritten Ritalin Rx provided on discharge to patient. Spoke to Svetlana Constantino visiting nurse from [facility] who gave approval for patient to return home with h/w rx for Ritalin, which she will fill tomorrow morning at [facility] in [place], [place]. 3. F/u at [facility] for intake today at 12:45PM. 4. Patient to f/u with PCP for management of HTN. Patient has scheduled appointment in 04/2016, per his report. 5. In the event of an emergency, call 911/go to nearest emergency department. Patient verbalized understanding of instructions.
--- NOTE | 2016-04-11 10:34 | NUR ---
PT IS DISCHARGED TODAY TI [facility] [place]. HE REPORTS AND DEMONSTRATES IMPROVEMENT IN HIS MOOD AND ABILITY TO FUNCTION. HE DENIES ANY THOUGHTS OF SUICIDE OR SELF HARM. HE VERBALIZES A GOOD UNDERSTANDING OF HIS TREATMENT PLAN. PT HAS VISITING NURSES FOR MED MANAGEMENT. PT AGREES TO FOLLOW UP WITH IOP. PT IS GIVEN EDUCATION R/T MANAGING DEPRESSED AND ANXIOUS MOODS AND ON SUIICDE PREVENTION
--- NOTE | 2016-04-11 10:39 | SOCIAL WORKER PROG NOTE PSYCH ---
Social Work Progress Note Progress Note Checked in with Luc briefly prior to team meeting. He said he was okay to discharge today. Dea Zuñiga APRN and I met with Luc together. Luc rated depression at a 0 and Anxiety 0 today (10 being worst). Denies SI. Feels Ritalin is working well and stated he feels good. His only concern is sleep. He's not sleeping well at night. Asked if he was also consuming alot of caffeine? He said that he usually has a couple cups of coffee in the morning, another in the afternoon and another in the evening. He was encouraged to keep it to the morning, as it isn't helping him get to sleep at night. Informed him that [facility] would not pay for peer support and that he may need to look into [facility] for that service. I told him I would pass that along to [facility] for them to help with, since they are closed today due to the holiday. Son Renny will pick him up after IOP intake at 1:30pm. Called [facility] to resume daily medical laboratory technical officer. They want meds called into [facility] in [place]. W-10 faxed to [facility], [facility], and [facility].
--- NOTE | 2016-04-11 11:05 | DISCHARGE SUMMARY REPORT-PSYCH ---
Visit Information Visit Dates/Diagnosis' Admission Date: 04/05/16 Discharge Date: 04/11/16 Reason for Admission: +SI and s/p attempt by placing plastic bag over his head. Psy Discharge Primary Diag: Treatment resistant MDD, recurrent, severe Psy Discharge Secondary Diag: Hypothyroidism; DM2; sleep apnea on CPAP, HTN Hospital Course Significant Lab Findings: Lab Free T4 1.51 ng/dL 04/04/16 1553 TSH &T3 &Free T4 Intrp 0.216 uIU/mL L 04/04/16 1553 Total T3 0.86 ng/mL L 04/04/16 1553 Cullom 0.6 mmol/L 04/09/16 0558 04/06/16 EKG: Sinus rhythm with a rate of 69. Showed left axis deviation. IN: 184 ; QRSD: 98; QT: 436; QTc: 467; P: 41; QRS: -36; T: 32. EKG confirmed otherwise normal by firer automatic stoker Dr. Uriah Marrero. Course Complications: None. Consultations: The patient was seed for admission history and physical by Dr. Shaun Lo. Please see his note for additional information. Allergies: Coded Allergies: Penicillins (RASH 11/11/15) Hospital Course/TX Response: The patient was monitored on unit for safety, suicidal ideation, and mood. He participated in multimodal treatments on the unit. Lamictal 200mg at bedtime was continued for mood stabilization. Cullom 300mg every morning and 600mg every night was continued for suicide prevention/mood stabilization. Propranolol 10mg twice daily was discontinued as the patient had been utilizing this for tremor associated with Cullom, however during the hospital course, no tremor was noted. Patient was agreeable to discontinuation. Risperdal 0.5mg twice daily and 2mg at bedtime was continued for clear thoughts/mood stabilization. Lexapro 20mg every morning was continued for anxiety/depression. Klonopin 0.5mg three times daily prn was discontinued, as patient never utilized this during the hospital course and did not express acute bouts of anxiety. Trazodone 75mg at bedtime was discontinued for insomnia, and patient was started on Benadryl 50mg at bedtime for insomnia which was increased to 100mg prn at bedtime for insomnia. The patient denied any concerning anticholinergic side effects. Patient was started on Ritalin 5mg every morning for treatment resistant depression. This was later increased to 5mg twice daily. Patient reported difficulty falling and staying asleep during the night, so Ritalin was rescheduled to 10mg every morning with good effect. His home medical medications of Metformin 500mg twice daily for diabetes, Synthroid 0.15mg daily before breakfast for hypothyroidism, and Lisinopril 2.5mg every morning for hypertension were continued. The patient reported having a scheduled appointment with his PCP in 04/2016, and was advised to follow-up with him regarding abnormal thyroid function tests, along with diabetes and hypertension management. Patient verbalized understanding. During the hospital course, the patient's mood, affect and energy level improved. Suicidal ideation remitted. A family meeting was held with the patient , his son oldest son eRnny whom he lives with, Paz Molina LCSW,and this instructional writer. The patient's treatment progress, medication regimen, level of safety and discharge plan were reviewed. The patient did not qualify for [id number] support and thus was not set up on an outpatient basis. The patient and his son were in favor of discharge plan to return to [facility] for psychiatric symptom and medication management. Patient would also resume visiting nurse services with [facility]. On the day of discharge, 04/11/16, the patient was alert and oriented to person, place, time and situation. Speech was normal in rate, tone and volume. Eye contact was appropriate. He reported improved energy and mood. He reported mood as "really good!" Affect appeared calm and constricted. He reported depression of 0/10 (10 being the worst) and anxiety of 0/10 (10 being the worst). Reported improved sleep since discontinuation of Trazodone and start of Benadryl at bedtime, but continued to report some disruption in sleep. He reported his appetite was good. He denied feeling hopeless, helpless, worthless and guilty. He denied passive and active suicidal ideation, plans and intent. He denied homicidal ideation. He stated and also believed he will not harm himself or others. He denied auditory and visual hallucinations. There was no evidence of paranoia or delusions. Thought process was linear and goal-directed. Thought content was appropriate. Cognition was grossly intact. He reported feeling safe and ready for discharge, and was in favor of scheduled after care plan at [facility] and resuming VNS services with [facility]. Discharge HBIPS - Tobacco Use Treatment Offered Post DC Medications Offered: NA-No Tob Use >30 days Post DC Tobacco Treatment Plan: NA-No Tobacco use >30days - EtOH/Drug Use D/O Treatment Offered Post DC Medications Offered: NA-No EtOH/Drug Use D/O Post DC EtOH/SubAbuse TX Plan: NA-No EtOH/Drug Use D/O Metabolic Screening - Screen if on a Neuroleptic Medication - Metabolic screening should include: - Blood Pressure, BMI, Glucose or Hgb A1c, & a - Lipid profile from within the past 365 days. Metabolic Screening () Not Applicable, patient not on a neuroleptic. OR ([X]) Patient on a neuroleptic(s) . Enter below results for Glucose or Hemoglobin A1C, and lipid panel if obtained during the last 365 days. BMI: 29.500 Blood Pressure: 144/85 Laboratory Results (If applicable): Lab Cholesterol 146 MG/DL 10/14/15 1128 Cholesterol/HDL Ratio 3 % 10/14/15 1128 Glucose 96 mg/dL 04/04/16 1553 HDL Cholesterol 47 mg/dL 10/14/15 1128 Hemoglobin A1c 5.0 % 10/29/15 0624 LDL Cholesterol, Calc 68 mg/dL 10/14/15 1128 Triglycerides 155 mg/dL H 10/14/15 1128 Discharge Instructions General Discharge Information Discharge Medications: Discharge Medications- (Dose, route, freq, indication): HOME MEDICATION LIST Lisinopril Dose: ORAL, Every Morning for Qty: 14 Printed (Lisinopril) 2.5 MG 2.5 Milligram hypertension Refills: 0 TABLET Last Taken:04/11/16 Time:0900 Lamotrigine Dose: ORAL, AT BEDTIME for Qty: 14 Printed (Lamictal) 200 MG 200 Milligram mood stabilization Refills: 0 TABLET Last Taken:04/10/16 Time:2214 Escitalopram Oxalate Dose: ORAL, DAILY for Qty: 14 Printed (Lexapro) 20 MG 1 Tablet depression/anxiety Refills: 0 TABLET Last Taken:04/11/16 Time:0900 Risperidone Dose: ORAL, Every night for Qty: 14 Printed (Risperdal) 2 MG 1 Tablet clear thoughts Refills: 0 TABLET Last Taken:04/10/16 Time:2215 Risperidone Dose: ORAL, TWICE DAILY for Qty: 28 Printed (Risperdal) 0.5 MG 1 Tablet clear thoughts Refills: 0 TABLET Last Taken:04/11/16 Time:0900 Methylphenidate Dose: ORAL, DAILY @8 AM for Qty: 14 Hydrochloride 10 Milligram depression Refills: 0 (Ritalin) 10 MG Last Taken:04/11/16 TABLET Time:0900 Cullom Carbonate Dose: ORAL, SEE INSTRUCTIONS Qty: 42 Printed (Cullom Carbonate) 900 Milligram for suicide prevention Refills: 0 300 MG CAPSULE Take 1 cap (300mg) po QAM and 2 caps (600mg) po QPM. Last Taken:04/11/16 Time:0900 Metformin Dose: ORAL, 0800,1700 for Qty: 28 Printed Hydochloride 500 Milligram DIABETES Refills: 0 (Glucophage) 500 MG Last Taken:04/11/16 TABLET Time:0900 Levothyroxine Sodium Dose: ORAL, DAILY BEFORE Qty: 14 Printed (Synthroid) 150 MCG 0.15 BREAKFAST for Refills: 0 TABLET Milligram hypothyroidism Last Taken:04/11/16 Time:0700 A hand-written prescription for Ritalin 10mg po every morning, #14, NR was provided to patient on discharge. All discharge medications were called into [facility] per VNS request. Patient was advised to purchase Benadryl OTC at pharmacy and to take 100mg (two 50mg caps)at bedtime as needed for insomnia. Patient verbalized understanding of all instructions. STOP taking these DISCONTINUED Home Medications: Clonazepam (Clonazepam) 0.5 MG Dose: ORAL, as needed for ANXIETY TABLET 1 Tablet Reason Stopped: Per Doctor Decision Trazodone HCl (Trazodone HCl) Dose: ORAL, 2230 for SLEEP 50 MG TABLET 50 Milligram Reason Stopped: Per Doctor Decision Multiple Neuroleptics: ([X]) Not Applicable OR Document below three failed attempts at monotherapy, or a plan to taper to monotherapy, or augmentation of Clozapine. () Patient's Diet: Regular. Patient's Activity: No restrictions. DC Disposition: Patient to return to home and family. Recommendations: The patient was advised to please take his medication as prescribed. The patient was advised that [facility] VNS would resumed on 04/12/16 after 2:30 PM. The patient was advised to follow-up with scheduled PCP appointment in 2016 for continued management of HTN, hypothyroidism and diabetes. He was advised to follow-up with scheduled [facility] intake on 04/11/16 at 12:45PM. This instructional writer spoke to patient's outpatient psychiatric provider at [facility], Antonella Ovalles APRN, and informed her of updated medication regimen. She was informed that during the hospital course, the patient had no evidence of Cullom tremor and that BP was within normal limits and thus Propranolol 10mg BID was discontinued. She was informed that on the date of discharge BP suggested mild hypertension and that if BP remained elevated to consider reintroducing Propranolol 10mg BID. Patient was also advised to discuss BP with his PCP on next scheduled apppointment in 04/2016, if it remains elevated (? d/t to introduction of Ritalin 10mg QAM). This instructional writer spoke to [facility] bootmaker Svetlana Constantino and informed her pf his updated medication regimen. All prescriptions were initially called into [facility] in [place], [place] per VNS request, and later cancelled and called into [facility] per VNS request. Patient was provided with a hand-written prescription for Ritalin 10mg po QAM, #14, NR per VNS request, and Svetlana Constantino, JESUS, verbalized that she would obtain this from the patient on discharge and fill prescription at pharmacy. The patient was advised that in the event of an emergency to call 911/go to nearest emergency department. The patient verbalized understanding of all instructions. Referred To: [facility] [address], [place] [phone])[phone] Intake appointment scheduled at 04/11/16 at 12:45PM. [facility] [address] [place] [address] [phone])[phone] VNS services scheduled to resume on 04/11/16 after 2:30PM. Copies To: [facility]; [facility]
[2016-04-11] MEDS ORDERED: LISINOPRIL2.5 M1 PO (11:32)
[2016-04-11] MEDS ORDERED: LAMICTAL200 M1 PO (11:32)
[2016-04-11] MEDS ORDERED: LEXAPRO20 M1 PO (11:33)
[2016-04-11] MEDS ORDERED: RISPERDAL0.5 M1 PO (11:34)
[2016-04-11] MEDS ORDERED: RISPERDAL2 M1 PO (11:34)
[2016-04-11] MEDS ORDERED: LITHIUM CARBON300 M4 PO (11:35)
[2016-04-11] MEDS ORDERED: RITALIN10 MG PO (11:35)
[2016-04-11] MEDS ORDERED: GLUCOPHAGE500 M1 PO (11:36)
[2016-04-11] MEDS ORDERED: SYNTHROID150 MCG PO (11:37)
== END 2016-04-11 12:53 | DRG 751 ==
LOC: ENRESERVDT → ENRESERVTM → ERH 15:19 → ERHI 04-05 10:14 → ENPENDDIS 04-05 10:14 → CP SOUTH 04-05 10:14
PROVIDERS: Physician Assistant Medical; ADMIT Psychiatry & Neurology Psychiatry
DX: F33.2 Major depressive disorder, recurrent severe without psychotic features (principal); E03.9 Hypothyroidism, unspecified; E11.9 Type 2 diabetes mellitus without complications; G47.30 Sleep apnea, unspecified; I10 Essential (primary) hypertension
CPT/HCPCS: 36415; 80307; 93005; 93010; G0463; G0480